=== PATIENT | female | born 1975 | race Caucasian/White ===

== ENCOUNTER 2021-10-26 19:17 | Inpatient (IN) | payer OTHER, SELFPAY ==
--- NOTE | ~2021-10-26 | XR_ITS ---
EXAMINATION: XR CHEST CLINICAL INFORMATION: NG tube placement COMPARISON: None TECHNIQUE: Portable AP upright view of the chest was obtained. 2 images. FINDINGS: NG tube terminates in the distal esophagus and could be advanced by an additional 15 cm. The lungs and pleural spaces are clear. Dilated small bowel loops are seen in the upper abdomen. XR/XR chest 1V IMPRESSION: The NG tube terminates in the distal esophagus as above. This result was discussed with Dr. Ramsay by telephone at 12:03 PM on 10/27/2021 and it was ascertained that the content and urgency of the report was understood at the time of direct communication.
--- NOTE | ~2021-10-26 | XR_ITS ---
EXAMINATION: XR CHEST CLINICAL INFORMATION: NG tube placement COMPARISON: 10/27/2021 TECHNIQUE: Frontal view of the chest was obtained. XR/XR chest 1V FINDINGS AND IMPRESSION: Lungs are well expanded and clear. Cardiomediastinal silhouette has normal size and contour. No pleural effusion. No pneumothorax. The NG tube has been advanced into the proximal stomach. No evidence of pneumoperitoneum or other significant change.
--- NOTE | ~2021-10-26 | CT_ITS ---
EXAMINATION: CT ABDOMEN AND PELVIS WITH CONTRAST CLINICAL INFORMATION: Severe abdominal pain COMPARISON: None TECHNIQUE: Multidetector volumetric images were obtained from the superior aspect of the liver through the pubic symphysis following administration 85 mL of Omnipaque 350 intravenous contrast. Sagittal and coronal reformatted images were obtained on the technologist's workstation. Oral contrast: No This CT examination was performed using dose optimization techniques as appropriate, variously including the following: *Automated exposure control *Adjustment of mA and/or kV according to patient size (this includes techniques or standardized protocols for targeted exams where dose is matched to indication/reason for exam; i.e. extremities or head) *Use of iterative reconstruction technique DLP: 487 mGy-cm FINDINGS: LUNG BASES: The visualized lung bases are unremarkable. LIVER, GALLBLADDER, AND BILIARY TREE: Normal hepatic attenuation. No liver lesions. Hepatic and portal veins are patent. Mild diffuse intrahepatic biliary ductal dilation. Gallbladder is absent. Extrahepatic bile duct measures 0.6 cm in diameter. PANCREAS: Unremarkable. SPLEEN: Unremarkable. ADRENAL GLANDS: Unremarkable. KIDNEYS AND URETERS: Symmetric nephrograms. No hydronephrosis. Subcentimeter low-density probable cyst in the midpole the right kidney, too small to accurately characterize. No other renal lesions. No perinephric stranding or collections. BLADDER: Unremarkable. GASTROINTESTINAL TRACT: Multiple fluid-filled loops of dilated small bowel throughout the abdomen with focal transition point in the right hemiabdomen just below the inferior edge of the liver on axial images 32 and 33, coronal image 26 and 27 compatible with small bowel obstruction. The more distal ileum and colon are decompressed. Normal small bowel mucosal enhancement. No bowel wall thickening. No pneumatosis or free air. Normal appendix. Trace free fluid in the mesentery and inferior margin of the liver. Small hiatal hernia. ABDOMINAL WALL: No significant hernia is appreciated. LYMPH NODES: No lymphadenopathy. VASCULAR: Unremarkable. PELVIC VISCERA: IUD appears properly positioned in the uterus. Small amount of free pelvic fluid. Fluid density unilocular right adnexal rounded cyst exerting mild mass effect on the right dome of the bladder overlying the anterior uterus. OSSEOUS STRUCTURES: No acute fracture or suspicious osseous lesion. Minimal multilevel degenerative disc disease. CT/CT abdomen pelvis w con IMPRESSION: 1. Small bowel instruction with focal transition point located in the right hemiabdomen just below the inferior to the liver (please see carbajal images). 2. Small volume free fluid/ascites. 3. 7.2 x 8.1 x 7.2 cm unilocular right adnexal cyst, benign-appearing. Recommend follow-up pelvic ultrasound in 6-12 weeks per ACR guidelines 2013 to assess functional status. 4. Status post cholecystectomy with mild intrahepatic biliary ductal dilation. No extrahepatic ductal dilation. Findings likely normal postcholecystectomy. Correlate with LFTs for clinical significance.
[2021-10-26 19:25] VITALS: BP 148/78; PULSE 88; RESP 18; TEMP 36.8; O2SAT 99; BMI 22.8
[2021-10-26 19:46] VITALS: BP 147/80; PULSE 65; RESP 16; TEMP 36.7; O2SAT 98
--- NOTE | 2021-10-26 19:48 | ED_ITS ---
HPI - Abdominal Pain General Chief Complaint: Abdominal Pain Stated Complaint: abd pain ?? excessive vomiting Time Seen by Provider: 10/26/21 19:38 Source: patient Limitations: no limitations History of Present Illness HPI narrative: This is a 45-year-old female with a history of cholecystectomy who had acute onset of severe intermittent abdominal pain this morning. Pain is constant but is worse at times, which she states causes her to scream. She has vomited several times and also moved her bowels a number of times, did not have zaina diarrhea. Denies any fever. She denies any URI symptoms or fever. She states the pain is in her midline. Pain is worse than when she had a kidney infection. Pain is better lying on her side, not worsened with cough or movement. She denies any urinary symptoms. She had felt well yesterday. The patient went to [facility] ER earlier today and waited for hours but was not seen Related Data Allergies Allergy/AdvReac Type Severity Reaction Status Date / Time amoxicillin [AMOXICILLIN] Allergy Intermediate INVOLUNTARY Unverified 01/27/20 15:56 SPASMS ciprofloxacin [CIPROFLOXACIN] Allergy Intermediate EDEMA Unverified 01/27/20 15:56 Penicillins [PENICILLINS] Allergy Unknown UNKNOWN Unverified 01/27/20 15:56 Review of Systems Review of Systems Yes all other systems are reviewed and are negative Constitutional: Reports as per HPI and Denies fever(s) Eyes: Reports as per HPI and Reports no additional eye complaints Reports system reviewed and no additional complaints, except as documented, Reports as per HPI, Denies nasal congestion, Denies nasal discharge and Denies sore throat Cardiovascular: Reports as per HPI, Denies chest pain and Denies dyspnea Respiratory: Reports as per HPI, Denies cough and Denies dyspnea Gastrointestinal: Reports as per HPI, Reports abdominal pain, Denies constipation, Denies diarrhea and Reports vomiting Genitourinary: Reports as per HPI, Denies hematuria, Denies urinary frequency and Denies dysuria Musculoskeletal: Reports no additional musculoskeletal complaints and Denies numbness Skin/Breast: Reports as per HPI and Denies rash Reports as per HPI, Denies focal weakness and Denies numbness Psychiatric: Reports no additional psychiatric complaints and Reports as per HPI Endocrine: Reports no additional endocrine complaints and Reports as per HPI Hematologic/Lymphatic: Reports no additional hematologic/lymphatic complaints, Reports as per HPI and Reports other (No peripheral edema) [facility] Social History Social History Advance Directives: No Advance Directives Information Provided: No Physical Exam ED Vital Signs: Vital Signs - 24 hr 10/26/21 19:25 10/26/21 19:46 10/26/21 21:55 Temperature 98.2 F 98.1 F 99.0 F Pulse Rate 88 65 80 Respiratory Rate 18 16 16 Blood Pressure 148/78 H 147/80 H 154/81 H Pulse Oximetry 99 98 98 Oxygen Delivery Method Room Air Room Air Room Air BMI result Body Mass Index 22.8 Const Other: Patient uncomfortable appearing, lying on her side, intermittently screaming out loudly and pain. Skin appears somewhat pale General: no acute distress Orientation/consciousness: patient oriented x3 HENMT Head: Yes normal to inspection General nose exam: Normal external nose present Mouth: moist mucous membranes Throat: Yes posterior oropharynx normal, Yes tonsils normal and Yes uvula midline Eyes Eyelids: Yes eyelids normal Conjunctivae: conjunctivae normal Pupils: Equal, round and reactive pupils present Neck Neck: Yes supple Resp Effort & Inspection: normal respiratory effort Auscultation: clear to auscultation bilaterally Cardio Rate: regular rate Rhythm: regular rhythm Heart sounds: S1 normal heart sound present, S2 normal heart sound present, no gallops, no murmurs and no rubs GI Inspection: No distended Palpation (GI): Soft to palpation and Tenderness to palpation present (GI) (Worst right lower quadrant) in the RLQ and at McBurney's point Auscultation: normal bowel sounds and Absent bowel sounds Skin General skin exam: other (Warm and dry) Neuro General: patient oriented x3 and CN's II-XI intact bilaterally Cranial nerves: Yes Equal, round and reactive pupils present Extrem General: Yes no pedal edema Psych Affect: normal affect Attitude: cooperative MDM - Abdominal Pain MDM Narrative Medical decision making narrative: Patient with acute onset of severe abdominal pain today, constant but more intense at times, causing the patient to scream rather loudly in the ED. Patient did have associated vomiting times several times and also had moved her bowels a lot this morning. Patient was not distended on exam, bowel sounds are not hyperactive. Patient was treated with Dilaudid, Zofran, normal saline IV, and later Ativan, which she takes at bedtime. Patient had no further vomiting in the ED. white blood cell count is 15 but BUN to creatinine ratio, anion gap are normal. CT scan did show dilated loops of small bowel filled with fluid with a transition point on right below the liver, as well as a right-sided large adnexal cyst. Case was discussed with Dr. Mendoza of general surgery, who will consult. Dr. Santos the hospitalist service has been consulted for admission. Lab Data Attestation: I reviewed the patient's lab results. Result diagrams: 10/26/21 20:20 10/26/21 20:20 Labs: Lab Results 10/26/21 10/26/21 10/26/21 Range/Units 20:20 20:20 20:20 WBC 15.2 H (4.8-10.8) X10*3/uL RBC 4.53 (4.20-5.50) X10*6/uL Hgb 14.1 (12.0-16.0) g/dl Hct 40.7 (37.0-47.0) % MCV 89.8 (80.0-98.0) fL MCH 31.1 (27.0-33.0) pg MCHC 34.6 (31.0-35.0) g/dl RDW 12.4 (11.0-16.0) % Plt Count 349 (160-400) X10*3/uL MPV 10.4 (9.4-12.3) fL Immature Gran % (Auto) 0.3 (0.0-0.4) % Neut % (Auto) 93.5 H (45-73) % Lymph % (Auto) 4.5 L (20-40) % [place] % (Auto) 1.5 L (2-11) % Eos % (Auto) 0.0 (0-4) % Baso % (Auto) 0.2 (0-2) % Lymph # (Auto) 0.7 L (1.2-4.9) X10*3/uL [place] # (Auto) 0.2 (0.1-1.2) X10*3/uL Eos # (Auto) 0.0 (0.0-0.4) X10*3/uL Baso # (Auto) 0.0 (0.0-0.2) X10*3/uL Abs Immat Gran (auto) 0.05 H (0.00-0.03) X10*3/uL Absolute Neuts (auto) 14.2 H (2.0-8.3) x10*3/uL Absolute Nucleated RBC 0.000 (0.0-0.012) X10*3/uL Nucleated RBC % (auto) 0.0 (0.0-0.2) /100WBC Smear Tech's Comments VERIFIED Sodium 137 (135-145) mmol/L Potassium 3.9 (3.3-5.1) mmol/L Chloride 105 (96-108) mmol/L Carbon Dioxide 16 L (22-29) mmol/L Anion Gap 20 (12-20) BUN 14 (9-16) mg/dL Creatinine 0.78 (0.5-1.4) mg/dL Estim Creat Clear Calc 90.9 Estimated GFR > 60 Random Glucose 132 H (60-115) mg/dL Calcium 9.7 (8.4-10.2) mg/dL Total Bilirubin 1.2 H (0.0-1.0) mg/dL AST 16 (5-31) U/L ALT 16 (0-31) U/L Alkaline Phosphatase 57 (39-117) U/L Total Protein 7.8 (6.5-8.0) g/dL Albumin 5.0 (3.5-5.0) g/dL Lipase 23 (8-78) U/L Beta HCG, Quant < 2 mIU/mL Imaging Data CT abdomen and pelvis with IV contrast: Radiologist's impression: FINDINGS: LUNG BASES: The visualized lung bases are unremarkable.? LIVER, GALLBLADDER, AND BILIARY TREE: Normal hepatic attenuation. No liver lesions. Hepatic and portal veins are patent. Mild diffuse intrahepatic biliary ductal dilation. Gallbladder is absent. Extrahepatic bile duct measures 0.6 cm in diameter.? PANCREAS: Unremarkable.? SPLEEN: Unremarkable.? ADRENAL GLANDS: Unremarkable.? KIDNEYS AND URETERS: Symmetric nephrograms. No hydronephrosis. Subcentimeter low-density probable cyst in the midpole the right kidney, too small to accurately characterize. No other renal lesions. No perinephric stranding or collections.? BLADDER: Unremarkable.? GASTROINTESTINAL TRACT: Multiple fluid-filled loops of dilated small bowel throughout the abdomen with focal transition point in the right hemiabdomen just below the inferior edge of the liver on axial images 32 and 33, coronal image 26 and 27 compatible with small bowel obstruction. The more distal ileum and colon are decompressed. Normal small bowel mucosal enhancement. No bowel wall thickening. No pneumatosis or free air. Normal appendix. Trace free fluid in the mesentery and inferior margin of the liver. Small hiatal hernia. ABDOMINAL WALL: No significant hernia is appreciated.? LYMPH NODES: No lymphadenopathy. VASCULAR: Unremarkable. PELVIC VISCERA: IUD appears properly positioned in the uterus. Small amount of free pelvic fluid. Fluid density unilocular right adnexal rounded cyst exerting mild mass effect on the right dome of the bladder overlying the anterior uterus.? OSSEOUS STRUCTURES: No acute fracture or suspicious osseous lesion. Minimal multilevel degenerative disc disease.? CT/CT abdomen pelvis w con IMPRESSION: ? 1. Small bowel obstruction with focal transition point located in the right hemiabdomen just below the inferior to the liver (please see carbajal images). 2. Small volume free fluid/ascites. 3. 7.2 x 8.1 x 7.2 cm unilocular right adnexal cyst, benign-appearing. Recommend follow-up pelvic ultrasound in 6-12 weeks per ACR guidelines 2013 to assess functional status. 4. Status post cholecystectomy with mild intrahepatic biliary ductal dilation. No extrahepatic ductal dilation. Findings likely normal postcholecystectomy. Correlate with LFTs for clinical significance. Discharge Plan Discharge Clinical Impression: Small bowel obstruction Patient Disposition: Admitted as Observation
[2021-10-26] MEDS: HYDROmorphone HCl 1 MG/ML SYRINGE IVPUSH (20:14)
[2021-10-26] MEDS: ondansetron HCL 4 MG/2 ML VIAL IVPUSH (20:14)
[2021-10-26] MEDS: 0.9 % Sodium Chloride 1,000 ML 999 ML IV (20:15)
[2021-10-26 20:28] LABS: Basophils Percent Auto 0.2 % (0-2); Hematocrit 40.7 % (37.0-47.0); Hemoglobin 14.1 g/dl (12.0-16.0); Imm Gran Abs Auto 0.05 X10*3/uL (0.00-0.03); Imm Gran Pct Auto 0.3 % (0.0-0.4); Lymphocytes Absolute Auto 0.7 X10*3/uL (1.2-4.9); Lymphocytes Percent Auto 4.5 % (20-40); MANUAL DIFF FLAG SCAN; Mean Corpuscular HGB Conc 34.6 g/dl (31.0-35.0); Mean Corpuscular Hemoglobin 31.1 pg (27.0-33.0); Mean Corpuscular Volume 89.8 fL (80.0-98.0); Mean Platelet Volume 10.4 fL (9.4-12.3); Monocytes Absolute Auto 0.2 X10*3/uL (0.1-1.2); Monocytes Percent Auto 1.5 % (2-11); Neutrophils Absolute Auto 14.2 x10*3/uL (2.0-8.3); Neutrophils Percent Auto 93.5 % (45-73); Platelet Count 349 X10*3/uL (160-400); Red Blood Count 4.53 X10*6/uL (4.20-5.50); Red Cell Distribution Width 12.4 % (11.0-16.0); SCAN SMEAR FLAG 1; White Blood Count 15.2 X10*3/uL (4.8-10.8)
[2021-10-26 20:49] LABS: SLIDE REVIEW VERIFIED
[2021-10-26 21:01] LABS: Lipase 23 U/L (8-78)
[2021-10-26 21:02] LABS: Alanine Aminotransferase 16 U/L (0-31); Alkaline Phosphatase 57 U/L (39-117); Anion Gap 20 (12-20); Aspartate Amino Transferase 16 U/L (5-31); Bilirubin Total 1.2 mg/dL (0.0-1.0); Blood Urea Nitrogen 14 mg/dL (9-16); Calcium 9.7 mg/dL (8.4-10.2); Carbon Dioxide 16 mmol/L (22-29); Chloride 105 mmol/L (96-108); Creatinine Clr Calc Pharmacy 90.9; Estimated Glomerular Filt Rate > 60; Glucose Random 132 mg/dL (60-115); Potassium 3.9 mmol/L (3.3-5.1); Sodium 137 mmol/L (135-145); Total Protein 7.8 g/dL (6.5-8.0)
[2021-10-26 21:08] LABS: HCG Quantitative < 2 mIU/mL
[2021-10-26] MEDS: iohexoL 350 MG/ML 100 ML INFUS..BTL IV (21:37)
[2021-10-26 21:55] VITALS: BP 154/81; PULSE 80; RESP 16; TEMP 37.2; O2SAT 98
[2021-10-26] MEDS: LORazepam 2 MG/ML VIAL 1 MG IVPUSH (22:18)
--- NOTE | 2021-10-26 23:31 | P.HPHOSP_ITS ---
History of Present Illness Date of Service: 10/26/21 Chief Complaint: Abd pain Year old female past medical history of PCOS and anxiety who presents to the hospital with complaints of abdominal pain. Patient reports that the abdominal pain started today, worsened over the course of the day, pain is in the center of her abdomen, 10/10, nonradiating, no exacerbating or relieving factors, her last BM was the day prior, she reports that she has some gas. She has nausea with no vomiting, no urinary symptoms and no lower extremity edema. No headache or change in vision. on arrival to the ED patient hemodynamically stable with no significant abnormal vitals Labs are significant for WBC count of 15.2, otherwise unremarkable. Abdominal pelvic CT showed small bowel obstruction with focal transition point located in the right xiang abdomen just below/ inferior to the liver 7.2 x 8.1 x 7.2 cm right adnexal cyst, benign appearing, recommended follow-up in 6-12 weeks with a pelvic ultrasound, patient will be admitted for further management Review of Systems Review of Systems: Yes all other systems are reviewed and are negative [facility] Medical History PCOS (polycystic ovarian syndrome) Family History (Updated 10/27/21 @ 05:32 by Caitlin Santos MD) Other No family history of coronary artery disease Surgical History No pertinent past surgical history Social History Household Members: Spouse and Children Housing: House Do you presently have visiting nurse or other home services: No Patient Tobacco Use Status: Never used Tobacco e-Cigarette/Vaping Use: Never Used Second Hand Smoke Exposure: No Use of substances other than those prescribed or required for medical reasons: No Any prior treatment program specific to substance use: No Have you been hit, kicked, punched, or otherwise hurt by someone within the past year? If so, by whom?: No Do you feel safe in your current relationship?: Yes Is there a partner from a previous relationship who is making you feel unsafe no w?: No Are you made to feel afraid or neglected: No Advance Directives: No Advance Directives Information Provided: No Do you have thoughts of harming others: None Do you have a plan to hurt others: No Plan Recently lost weight without trying: No Eating poorly because of decreased appetite: No Nutrition Risks: No Nutritional Risk Patient : No : No Poor oral hygiene: No Meds Allergies Allergy/AdvReac Type Severity Reaction Status Date / Time amoxicillin [AMOXICILLIN] Allergy Intermediate INVOLUNTARY Unverified 01/27/20 15:56 SPASMS ciprofloxacin [CIPROFLOXACIN] Allergy Intermediate EDEMA Unverified 01/27/20 15:56 Penicillins [PENICILLINS] Allergy Unknown UNKNOWN Unverified 01/27/20 15:56 Active Medications: Current Medications Pharmacy Consult (Consult Rx Perform Med Rec) 1 each MISCELLANE ONCE PRN PRN Reason: Consult order Home Medications Medication Instructions Recorded Confirmed Last Taken Type albuterol sulfate 90 mcg/actuation inh inhalation 10/27/21 Unknown History aerosol inhaler fluoxetine 20 mg capsule 2 cap PO QAM 10/27/21 10/27/21 Unknown History levothyroxine 50 mcg tablet 1 tab PO DAILY 10/27/21 10/27/21 Unknown History lorazepam 0.5 mg tablet 1 tab PO DAILY PRN Anxiety 10/27/21 10/27/21 Unknown History metformin 500 mg tablet 1 tab PO DAILY 10/27/21 10/27/21 Unknown History trazodone 50 mg tablet 1 - 3 tab PO BEDTIME PRN Insomnia 10/27/21 10/27/21 Unknown History Physical Exam Vital Signs and Narrative: Vital Signs: Last Vital Signs Temp 99.0 F 10/26/21 21:55 Pulse 80 10/26/21 21:55 Resp 16 10/26/21 21:55 BP 154/81 H 10/26/21 21:55 Pulse Ox 98 10/26/21 21:55 O2 Del Method 10/26/21 21:55 BMI result Body Mass Index 22.8 Const: General: cooperative and no acute distress Orientation/consciousness: patient oriented x3 Eyes: General: appearance normal, both eyes and all related structures Pupils: Equal, round and reactive pupils present Resp: Effort & Inspection: normal respiratory effort Auscultation: clear to auscultation bilaterally Cardio: Rate: regular rate Rhythm: regular rhythm GI: Other: abdomen is soft, hyperactive bowel sounds, guarding Palpation (GI): Soft to palpation Auscultation: normal bowel sounds Skin: General skin exam: no rashes or lesions noted Neuro: General: patient oriented x3 Cranial nerves: Yes Equal, round and reactive pupils present Cognition (Neuro): normal cognition Extrem: General: Yes normal to inspection and Yes no pedal edema Results Labs CBC and Chem 7: 10/26/21 20:20 10/26/21 20:20 Labs: Laboratory Results - last 24 hr 10/26/21 10/26/21 10/26/21 20:20 20:20 20:20 MCV 89.8 MCH 31.1 MCHC 34.6 RDW 12.4 Plt Count 349 MPV 10.4 Immature Gran % (Auto) 0.3 Neut % (Auto) 93.5 H Lymph % (Auto) 4.5 L [place] % (Auto) 1.5 L Eos % (Auto) 0.0 Baso % (Auto) 0.2 Lymph # (Auto) 0.7 L [place] # (Auto) 0.2 Eos # (Auto) 0.0 Baso # (Auto) 0.0 Abs Immat Gran (auto) 0.05 H Absolute Neuts (auto) 14.2 H Absolute Nucleated RBC 0.000 Nucleated RBC % (auto) 0.0 Smear Tech's Comments VERIFIED Anion Gap 20 Estim Creat Clear Calc 90.9 Estimated GFR > 60 Random Glucose 132 H Calcium 9.7 Total Bilirubin 1.2 H AST 16 ALT 16 Alkaline Phosphatase 57 Total Protein 7.8 Albumin 5.0 Lipase 23 Beta HCG, Quant < 2 Imaging Radiologist's Impressions: Impressions Abdomen/Pelvis CT 10/26/21 21:39 IMPRESSION: 1. Small bowel instruction with focal transition point located in the right hemiabdomen just below the inferior to the liver (please see carbajal images). 2. Small volume free fluid/ascites. 3. 7.2 x 8.1 x 7.2 cm unilocular right adnexal cyst, benign-appearing. Recommend follow-up pelvic ultrasound in 6-12 weeks per ACR guidelines 2013 to assess functional status. 4. Status post cholecystectomy with mild intrahepatic biliary ductal dilation. No extrahepatic ductal dilation. Findings likely normal postcholecystectomy. Correlate with LFTs for clinical significance. Assessment and Plan (1) Small bowel obstruction: Status: Acute Plan this is a 45-year-old female with past medical history of PCOS who presents to the hospital with abdominal pain found to have small-bowel obstruction # small-bowel obstruction - keep NPO - pain management - currently no nausea or vomiting - bowel rest - general surgery consult at # PCOS - hold metformin - can resume once patient able to eat # anxiety - continue home medications DVT prophylaxis: Lovenox given the small-bowel obstruction patient will require a minimum 2 night hospital stay to monitor resolution of the obstruction Quality Stroke Does the patient have a stroke diagnosis?: No VTE Prior VTE?: No VTE Risk Level:: Surgical - very high VTE Device Contraindication: Treatment Not Indicated VTE Drug Contraindication: N/A - Med Ordered
[2021-10-26 23:50] VITALS: BP 148/80; PULSE 95; RESP 16; TEMP 37.2; O2SAT 98
[2021-10-27] VITALS (15 sets, daily range): BP systolic 123–165; BP diastolic 64–95; PULSE 82–91; RESP 15–20; TEMP 36.3–37.7; O2SAT 97–100; BMI 22.0
[2021-10-27 00:26] LABS: COVID-19 Test Negative (Negative)
[2021-10-27] MEDS: Enoxaparin Sodium 40 MG/0.4 ML SYRINGE SUBCUT ×2 (01:10→23:44)
[2021-10-27] MEDS: Lactated Ringers 1,000 ML 100 ML IVCONT ×3 (01:10→20:09)
[2021-10-27] MEDS: HYDROmorphone HCl 1 MG/ML SYRINGE 0.5 MG IVPUSH ×6 (02:08→20:13)
[2021-10-27] MEDS: traZODone HCL 50 MG TABLET 150 MG PO (02:10)
[2021-10-27] MEDS: Levothyroxine Sodium 50 MCG TABLET PO (06:06)
[2021-10-27 06:42] LABS: MANUAL DIFF FLAG NO
[2021-10-27 06:47] LABS: Basophils Percent Auto 0.2 % (0-2); Eosinophils Percent Auto 0.1 % (0-4); Hematocrit 35.3 % (37.0-47.0); Hemoglobin 11.7 g/dl (12.0-16.0); Imm Gran Abs Auto 0.05 X10*3/uL (0.00-0.03); Imm Gran Pct Auto 0.3 % (0.0-0.4); Lymphocytes Absolute Auto 1.4 X10*3/uL (1.2-4.9); Lymphocytes Percent Auto 9.5 % (20-40); Mean Corpuscular HGB Conc 33.1 g/dl (31.0-35.0); Mean Corpuscular Hemoglobin 30.6 pg (27.0-33.0); Mean Corpuscular Volume 92.4 fL (80.0-98.0); Mean Platelet Volume 10.9 fL (9.4-12.3); Monocytes Absolute Auto 0.9 X10*3/uL (0.1-1.2); Monocytes Percent Auto 6.4 % (2-11); Neutrophils Absolute Auto 12.4 x10*3/uL (2.0-8.3); Neutrophils Percent Auto 83.5 % (45-73); Platelet Count 297 X10*3/uL (160-400); Red Blood Count 3.82 X10*6/uL (4.20-5.50); Red Cell Distribution Width 12.6 % (11.0-16.0); White Blood Count 14.8 X10*3/uL (4.8-10.8)
--- NOTE | 2021-10-27 07:17 | PHA.MEDREC ---
Pharmacy Consult ? Medication Reconciliation Pharmacy has completed the medication reconciliation.nursing completed med, reviewed by pharmacy
[2021-10-27 07:19] LABS: Anion Gap 11 (12-20); Blood Urea Nitrogen 10 mg/dL (9-16); Calcium 8.5 mg/dL (8.4-10.2); Carbon Dioxide 23 mmol/L (22-29); Chloride 108 mmol/L (96-108); Creatinine Clr Calc Pharmacy 102.8; Estimated Glomerular Filt Rate > 60; Glucose Random 93 mg/dL (60-115); Potassium 3.9 mmol/L (3.3-5.1); Sodium 138 mmol/L (135-145)
--- NOTE | 2021-10-27 09:20 | HO.PM.IMPN ---
Subjective Subjective Date of Service: 10/27/21 Interval History: feeling better this morning, does abdominal pain after Dilaudid wears off, no nausea, no vomiting, no flatus, no bowel movement. Review of Systems general no fevers, no chills respiratory no cough, no shortness of breath CVS no chest pain no urinary urgency, no dysuria Review of Systems: Yes all other systems are reviewed and are negative Physical Exam Vital Signs: Vital Signs: Last Vital Signs Temp 99.2 F 10/27/21 07:44 Pulse 82 10/27/21 07:44 Resp 16 10/27/21 07:44 BP 138/73 10/27/21 07:44 Pulse Ox 97 10/27/21 07:44 O2 Del Method 10/27/21 07:44 BMI result Body Mass Index 22.0 Const: Other: General awake alert x3,in no acute distress. Neck no JVD. CVS regular rate rhythm, Respiratory lungs clear to auscultation, no respiratory distress, no wheeze, no rhonchi. Gastrointestinal abdomen soft, nontender, bowel sounds audible, no guarding , no rigidity. Extremities no edema. Neuro nonfocal Skin no rash psych appropriate affect Objective Data Active Medications Acetaminophen (Acetaminophen Supp 650 Mg Supp.Rect) 650 mg CA Q6H PRN PRN Reason: Pain, Mild (Pain Scale 1-3) Albuterol Sulfate (Albuterol Sulfate 90 Mcg 8 Gm Inhaler) 2 puff INHALE TID PRN PRN Reason: Shortness Of Breath Budesonide (Budesonide 180 Mcg Aer.Pow.Ba) 2 puff INHALE BID [facility] Enoxaparin Sodium (Enoxaparin Sodium 40 Mg/0.4 Ml Syringe) 40 mg SUBCUT Q24H [facility] Last Admin: 10/27/21 01:10 Dose: 40 mg Documented By: CANDE Fluoxetine HCl (Fluoxetine Hcl 20 Mg Capsule) 40 mg PO DAILY [facility] Hydromorphone HCl (Hydromorphone Hcl 1 Mg/Ml Syringe) 0.5 mg IVPUSH Q4H PRN; Protocol PRN Reason: Pain, Severe (Pain Scale 7-10) Last Admin: 10/27/21 06:40 Dose: 0.5 mg Documented By: CANDE Lactated Ringer's (Lr) 1,000 mls @ 100 mls/hr IVCONT .Q10H [facility] Last Admin: 10/27/21 01:10 Dose: 100 mls/hr Documented By: CANDE Levothyroxine Sodium (Levothyroxine Sodium 50 Mcg Tablet) 50 mcg PO DAILY@0630 [facility] Last Admin: 10/27/21 06:06 Dose: 50 mcg Documented By: CANDE Lorazepam (Lorazepam 0.5 Mg Tablet) 0.5 mg PO DAILY PRN PRN Reason: Anxiety Ondansetron HCl (Ondansetron Hcl 4 Mg/2 Ml Vial) 4 mg IVPUSH Q8H PRN PRN Reason: Nausea and Vomiting Pharmacy Consult (Consult Rx Perform Med Rec) 1 each MISCELLANE ONCE PRN PRN Reason: Consult order Trazodone HCl (Trazodone Hcl 50 Mg Tablet) 50 - 150 mg PO BEDTIME PRN PRN Reason: Insomnia Labs CBC & Chem 7: 10/27/21 05:59 10/27/21 05:59 Labs: Laboratory Results - last 24 hr 10/26/21 10/26/21 10/26/21 20:20 20:20 20:20 MCV 89.8 MCH 31.1 MCHC 34.6 RDW 12.4 Plt Count 349 MPV 10.4 Immature Gran % (Auto) 0.3 Neut % (Auto) 93.5 H Lymph % (Auto) 4.5 L [place] % (Auto) 1.5 L Eos % (Auto) 0.0 Baso % (Auto) 0.2 Lymph # (Auto) 0.7 L [place] # (Auto) 0.2 Eos # (Auto) 0.0 Baso # (Auto) 0.0 Abs Immat Gran (auto) 0.05 H Absolute Neuts (auto) 14.2 H Absolute Nucleated RBC 0.000 Nucleated RBC % (auto) 0.0 Smear Tech's Comments VERIFIED Anion Gap 20 Estim Creat Clear Calc 90.9 Estimated GFR > 60 Random Glucose 132 H Calcium 9.7 Total Bilirubin 1.2 H AST 16 ALT 16 Alkaline Phosphatase 57 Total Protein 7.8 Albumin 5.0 Lipase 23 Beta HCG, Quant < 2 COVID-19 (ORTIZ) COVID-19 Clin Com 10/26/21 10/27/21 10/27/21 23:54 05:59 05:59 MCV 92.4 MCH 30.6 MCHC 33.1 RDW 12.6 Plt Count 297 MPV 10.9 Immature Gran % (Auto) 0.3 Neut % (Auto) 83.5 H Lymph % (Auto) 9.5 L [place] % (Auto) 6.4 Eos % (Auto) 0.1 Baso % (Auto) 0.2 Lymph # (Auto) 1.4 [place] # (Auto) 0.9 Eos # (Auto) 0.0 Baso # (Auto) 0.0 Abs Immat Gran (auto) 0.05 H Absolute Neuts (auto) 12.4 H Absolute Nucleated RBC 0.000 Nucleated RBC % (auto) 0.0 Smear Tech's Comments Anion Gap 11 L Estim Creat Clear Calc 102.8 Estimated GFR > 60 Random Glucose 93 Calcium 8.5 D Total Bilirubin AST ALT Alkaline Phosphatase Total Protein Albumin Lipase Beta HCG, Quant COVID-19 (ORTIZ) Negative COVID-19 Clin Com See Note Assessment and Plan (1) Small bowel obstruction: Status: Acute Plan 45-year-old female with past medical history of PCOS who presents to the hospital with abdominal pain found to have small-bowel obstruction #? abdominal pain CT scan showed small-bowel obstruction with transition point -? continue NPO/ IV fluids, IV analgesics await surgery input, prior history of cholecystectomy question adhesions normal electrolytes # leukocytosis likely due to small-bowel obstruction, lung bases clear on CT abdomen will obtain UA #? PCOS -? hold metformin,? can resume once patient able to eat # right adnexal cyst, 7.2 x 8.1 x 7.2 cm unilocular? recommend repeat pelvic ultrasound in 6-12 weeks and follow-up with OBGYN #? anxiety -? continue home medications # hypothyroidism continue Synthroid, check TSH ?DVT prophylaxis:? Lovenox will need continued inpatient hospitalization?given small-bowel obstruction on IV fluids and NPO. Quality Stroke Does the patient have a stroke diagnosis?: No VTE Prior VTE?: No VTE Risk Level:: Surgical - very high VTE Device Contraindication: Treatment Not Indicated VTE Drug Contraindication: N/A - Med Ordered
[2021-10-27] MEDS: FLUoxetine HCl 20 MG CAPSULE 40 MG PO (09:32)
--- NOTE | 2021-10-27 11:16 | P.CONGS_ITS ---
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 I was contacted by the emergency room team last night because the patient had crampy abdominal pain and vomiting. It was reported the patient had cholecystectomy, presumably from laparoscopic surgery, however the patient notes today that she had a history of liver tumors and underwent an open resection of these liver tumors that turned out to be benign. Since that time, she was doing well until yesterday when she developed crampy abdominal pain associated with nausea and vomiting. She also had several normal bowel movements and then some loose stool but is not passed any gas since admission yesterday. She reports cyclical crampy abdominal pain associated with nausea and is awaiting pain medication when I examined her earlier today. She did not have a nasogastric tube placed notes recent emesis associated with her nausea. She denies prior history of small-bowel obstruction and no one at home has any gastrointestinal illness. She denies any recent trauma. 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 PMFSH Past Medical History Medical History PCOS (polycystic ovarian syndrome) Functional capacity: independent ambulation Family History Family History Other No family history of coronary artery disease Pertinent family history: She reports an unknown family history in her father regarding cardiac issues Surgical History Surgical History No pertinent past surgical history Social History Social History Household Members: Spouse and Children Housing: House Do you presently have visiting nurse or other home services: No Patient Tobacco Use Status: Never used Tobacco e-Cigarette/Vaping Use: Never Used Second Hand Smoke Exposure: No Use of substances other than those prescribed or required for medical reasons: No Any prior treatment program specific to substance use: No Have you been hit, kicked, punched, or otherwise hurt by someone within the past year? If so, by whom?: No Do you feel safe in your current relationship?: Yes Is there a partner from a previous relationship who is making you feel unsafe now?: No Are you made to feel afraid or neglected: No Advance Directives: No Advance Directives Information Provided: No Do you have thoughts of harming others: None Do you have a plan to hurt others: No Plan Recently lost weight without trying: No Eating poorly because of decreased appetite: No Nutrition Risks: No Nutritional Risk Patient : No : No Poor oral hygiene: No Meds Allergies Allergy/AdvReac Type Severity Reaction Status Date / Time amoxicillin [AMOXICILLIN] Allergy Intermediate INVOLUNTARY Unverified 01/27/20 15:56 SPASMS ciprofloxacin [CIPROFLOXACIN] Allergy Intermediate EDEMA Unverified 01/27/20 15:56 Penicillins [PENICILLINS] Allergy Unknown UNKNOWN Unverified 01/27/20 15:56 Active Medications: Current Medications Acetaminophen (Acetaminophen Supp 650 Mg Supp.Rect) 650 mg [place] Q6H PRN PRN Reason: Pain, Mild (Pain Scale 1-3) Albuterol Sulfate (Albuterol Sulfate 90 Mcg 8 Gm Inhaler) 2 puff INHALE TID PRN PRN Reason: Shortness Of Breath Budesonide (Budesonide 180 Mcg Aer.Pow.Ba) 2 puff INHALE RBID [facility] Enoxaparin Sodium (Enoxaparin Sodium 40 Mg/0.4 Ml Syringe) 40 mg SUBCUT Q24H [facility] Last Admin: 10/27/21 01:10 Dose: 40 mg Fluoxetine HCl (Fluoxetine Hcl 20 Mg Capsule) 40 mg PO DAILY [facility] Last Admin: 10/27/21 09:32 Dose: 40 mg Hydromorphone HCl (Hydromorphone Hcl 1 Mg/Ml Syringe) 0.5 mg IVPUSH Q4H PRN; Protocol PRN Reason: Pain, Severe (Pain Scale 7-10) Last Admin: 10/27/21 10:51 Dose: 0.5 mg Lactated Ringer's (Lr) 1,000 mls @ 100 mls/hr IVCONT .Q10H [facility] Last Admin: 10/27/21 01:10 Dose: 100 mls/hr Levothyroxine Sodium (Levothyroxine Sodium 50 Mcg Tablet) 50 mcg PO DAILY@0630 [facility] Last Admin: 10/27/21 06:06 Dose: 50 mcg Lorazepam (Lorazepam 0.5 Mg Tablet) 0.5 mg PO DAILY PRN PRN Reason: Anxiety Ondansetron HCl (Ondansetron Hcl 4 Mg/2 Ml Vial) 4 mg IVPUSH Q8H PRN PRN Reason: Nausea and Vomiting Pharmacy Consult (Consult Rx Perform Med Rec) 1 each MISCELLANE ONCE PRN PRN Reason: Consult order Trazodone HCl (Trazodone Hcl 50 Mg Tablet) 50 - 150 mg PO BEDTIME PRN PRN Reason: Insomnia Home Medications Medication Instructions Recorded Confirmed Last Taken Type albuterol sulfate 90 mcg/actuation 2 puff inhalation TID PRN 10/27/21 10/27/21 Unknown History aerosol inhaler Shortness Of Breath budesonide 180 mcg/actuation 2 puff inhalation BID 10/27/21 10/27/21 Unknown History breath activated powder inhaler (Pulmicort Flexhaler) fluoxetine 20 mg capsule 2 cap PO QAM 10/27/21 10/27/21 Unknown History levothyroxine 50 mcg tablet 1 tab PO DAILY 10/27/21 10/27/21 Unknown History lorazepam 0.5 mg tablet 1 tab PO DAILY PRN Anxiety 10/27/21 10/27/21 Unknown History metformin 500 mg tablet 1 tab PO DAILY 10/27/21 10/27/21 Unknown History trazodone 50 mg tablet 1 - 3 tab PO BEDTIME PRN Insomnia 10/27/21 10/27/21 Unknown History Physical Exam Vital Signs: Vital Signs: Last Vital Signs Temp 99.2 F 10/27/21 07:44 Pulse 82 10/27/21 07:44 Resp 16 10/27/21 07:44 BP 138/73 10/27/21 07:44 Pulse Ox 97 10/27/21 07:44 O2 Del Method 10/27/21 07:44 BMI result Body Mass Index 22.0 On exam, she appears tired and queasy and is laying on her right side holding an emesis bag that is empty. NC/AT, PERRLA, EOMI Oropharynx is clear with no aphthous ulcers Mallampati class 2 Heart is regular, normal S1-S2 no rubs or murmurs Lungs are clear and equal anteriorly Abdomen has a large, chevron incision extending from the right to left subcostal area with no palpable hernias. Her abdomen is soft with no peritoneal sign to percussion. There is vague discomfort on deep palpation but no palpable hernia. Hyperactive bowel sounds are noted. No inguinal hernias or umbilical hernias are noted Rectal and pelvic are deferred Skin is good turgor and is free of rashes Extremities are free of cyanosis clubbing edema Mood, affect and judgment all appear intact based on our conversation and the patient's situation Results Labs Result diagrams: 10/27/21 05:59 10/27/21 05:59 Labs: Abnormal lab results 10/26/21 10/26/21 10/27/21 Range/Units 20:20 20:20 05:59 WBC 15.2 H 14.8 H (4.8-10.8) X10*3/uL RBC 3.82 L (4.20-5.50) X10*6/uL Hgb 11.7 L (12.0-16.0) g/dl Hct 35.3 L (37.0-47.0) % Neut % (Auto) 93.5 H 83.5 H (45-73) % Lymph % (Auto) 4.5 L 9.5 L (20-40) % [place] % (Auto) 1.5 L (2-11) % Lymph # (Auto) 0.7 L (1.2-4.9) X10*3/uL Abs Immat Gran (auto) 0.05 H 0.05 H (0.00-0.03) X10*3/uL Absolute Neuts (auto) 14.2 H 12.4 H (2.0-8.3) x10*3/uL Carbon Dioxide 16 L (22-29) mmol/L Anion Gap (12-20) Random Glucose 132 H (60-115) mg/dL Total Bilirubin 1.2 H (0.0-1.0) mg/dL 10/27/21 Range/Units 05:59 WBC (4.8-10.8) X10*3/uL RBC (4.20-5.50) X10*6/uL Hgb (12.0-16.0) g/dl Hct (37.0-47.0) % Neut % (Auto) (45-73) % Lymph % (Auto) (20-40) % [place] % (Auto) (2-11) % Lymph # (Auto) (1.2-4.9) X10*3/uL Abs Immat Gran (auto) (0.00-0.03) X10*3/uL Absolute Neuts (auto) (2.0-8.3) x10*3/uL Carbon Dioxide (22-29) mmol/L Anion Gap 11 L (12-20) Random Glucose (60-115) mg/dL Total Bilirubin (0.0-1.0) mg/dL Short CBC 10/26/21 10/27/21 Range/Units 20:20 05:59 WBC 15.2 H 14.8 H (4.8-10.8) X10*3/uL Hgb 14.1 11.7 L (12.0-16.0) g/dl Hct 40.7 35.3 L (37.0-47.0) % Plt Count 349 297 (160-400) X10*3/uL BMP 10/26/21 10/27/21 20:20 05:59 Sodium 137 138 Potassium 3.9 3.9 Chloride 105 108 Carbon Dioxide 16 L 23 BUN 14 10 Creatinine 0.78 0.69 Calcium 9.7 8.5 D Liver Function 10/26/21 Range/Units 20:20 Total Bilirubin 1.2 H (0.0-1.0) mg/dL AST 16 (5-31) U/L ALT 16 (0-31) U/L Alkaline Phosphatase 57 (39-117) U/L Albumin 5.0 (3.5-5.0) g/dL All other labs normal. Imaging Abdomen CT scan report/results: report reviewed and image reviewed CT scan - pelvis: report reviewed and image reviewed Assessment and Plan (1) Asthma: Status: Acute (2) Small bowel obstruction: Status: Acute (3) PCOS (polycystic ovarian syndrome): Status: Acute Plan I have placed orders and spoke with the nursing staff regarding placement of a nasogastric tube. I will order a lactic acid level given the degree of patient discomfort. Will reassess the patient following NG placement to see if there is interval improvement in her symptoms. Continue IV hydration and trend labs. Please call me with any surgical questions. Procedures Date of Service Date of Service: 10/27/21
[2021-10-27 12:34] LABS: Lactic Acid 0.7 mmol/L (0.5-2.0)
--- NOTE | 2021-10-27 12:49 | MHC.CM.PN ---
PT REPORTS SHE LIVES AT HOME WITH HER AND TWO SONS SHE REPORTS SHE IS INDEPENDENT WORKS AND DRIVES PT DENIES USE OF DME OR HOME SERVICES PT REPORTS SHE IS COVID-10 VACCINATED AND BOOSTED PT CONFIRMS HER PCP IS DEYSI DUDLEY PT DOES NOT HAVE A HCP AND WAS IN TOO MUCH PAIN TO DISCUSS TODAY SHE IS AWARE CM CAN ASSIST IF DESIRED LATER IN ADMISSION CURRENT DC PLAN IS HOME WITH NO SERVICES FAMILY TO TRANSPORT
[2021-10-27 14:48] LABS: MANUAL DIFF FLAG NO
[2021-10-27 15:00] LABS: Basophils Percent Auto 0.2 % (0-2); Eosinophils Percent Auto 0.1 % (0-4); Hematocrit 37.9 % (37.0-47.0); Hemoglobin 12.9 g/dl (12.0-16.0); Imm Gran Abs Auto 0.06 X10*3/uL (0.00-0.03); Imm Gran Pct Auto 0.3 % (0.0-0.4); Lymphocytes Absolute Auto 1.5 X10*3/uL (1.2-4.9); Lymphocytes Percent Auto 8.1 % (20-40); Mean Corpuscular Hemoglobin 31.1 pg (27.0-33.0); Mean Corpuscular Volume 91.3 fL (80.0-98.0); Mean Platelet Volume 10.7 fL (9.4-12.3); Monocytes Absolute Auto 1.1 X10*3/uL (0.1-1.2); Neutrophils Absolute Auto 15.8 x10*3/uL (2.0-8.3); Neutrophils Percent Auto 85.3 % (45-73); Platelet Count 332 X10*3/uL (160-400); Red Blood Count 4.15 X10*6/uL (4.20-5.50); Red Cell Distribution Width 12.7 % (11.0-16.0); White Blood Count 18.5 X10*3/uL (4.8-10.8)
--- NOTE | 2021-10-27 15:57 | MHC.SHP ---
Pre-Procedural Eval Section A Date of Service: 10/27/21 The patient is an INPATIENT: Yes The History & Physical has been completed within 30 days and I have reviewed it.: Yes Section B Chief Complaint: SBO Allergies: Allergies Allergy/AdvReac Type Severity Reaction Status Date / Time amoxicillin [AMOXICILLIN] Allergy Intermediate INVOLUNTARY Unverified 01/27/20 15:56 SPASMS ciprofloxacin [CIPROFLOXACIN] Allergy Intermediate EDEMA Unverified 01/27/20 15:56 Penicillins [PENICILLINS] Allergy Unknown UNKNOWN Unverified 01/27/20 15:56 Plan I have reviewed the history and physical and performed a pertinent physical examination on my patient. No changes have occurred unless specified.
[2021-10-27 18:51] LABS: Appearance Urine CLEAR; Color Urine YELLOW; Glucose Urine UA NEG (NEG); Leukocyte Esterase Urine NEG (NEG); Nitrite Urine NEG (NEG); Specific Gravity - Urine >= 1.030 (1.005-1.025); UACC Culture Trigger NO; Urine Blood TRACE (NEG); Urine Ketones 40 MG/DL (NEG); Urine Protein TRACE MG/DL (NEG-TRACE)
[2021-10-27 19:12] LABS: Bacteria Urine TRACE /LPF; Granular Casts Urine 0-2 /LPF; Mucus Urine 4+ /LPF; Squamous Epithelial Cell Urine 1+ /LPF; WBC Urine 0-2 /HPF (0-4)
[2021-10-27] MEDS: fentaNYL citrate/PF 100 MCG/2 ML VIAL 50 MCG IVPUSH (19:27)
--- NOTE | 2021-10-27 19:27 | PM.OP ---
Brief Operative Note Date of Service: 10/27/21 Pre-op diagnosis: SBO Post-op diagnosis: same Procedure: laparoscopic lysis of adhesions Surgeon: Josué Banegas MD Anesthesia: GETA and local Was an Catalyst Operator Gasoline used for this Procedure?: No Estimated blood loss (mL): 5 Pathology: none sent Condition: stable Disposition: PACU
--- NOTE | 2021-10-27 19:50 | W.PM.OPN ---
Operative Note Operative Note Date of Service: 10/27/21 Narrative: Preop diagnosis: [Small-bowel obstruction] Postop diagnosis: [] Procedure: [Diagnostic laparoscopy, lysis of adhesion] Surgeon: Josué Banegas MD Assist: [None] Anesthesia: [General endotracheal] Estimated blood loss: [3cc] Specimen: [None] Intraoperative findings: Discrete adhesive band from the omentum to the root of the mesentery causing a high-grade SBO. Following lysis of adhesions, the bowel was peristalsing and appeared viable a clear transition point was identified and photographed. The right ovarian cyst was bland and smooth in appearance and left in situ Indications: The patient is a 45-year-old woman who underwent hepatic resection at [facility] for benign liver tumors. Following deliberate loss of 55 lb by diet and exercise, the patient had been doing well until yesterday when she had noted severe, cramping abdominal pain associated with vomiting. CT scan showed a small-bowel obstruction with transition point in the right upper quadrant and nasogastric decompression and pain management was unsuccessful. The patient had worsening abdominal pain and increasing leukocytosis, consequently I recommended exploration. I reviewed the inherent risks of bleeding, infection, possible need for open surgery, the possible need for a bowel resection and the possibility of negative exploration. The option of a 2nd opinion or transfer was reviewed but declined. The possibility of complications that could require additional procedures was also reviewed and apparently understood. The patient her , Diego, seemed of the questions satisfactorily answered and wanted to proceed.] Procedure: [The patient was identified by myself in the preop area and again in the operating room. She was placed supine on the table, induced in general endotracheal anesthesia administered with excellent effect. 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 She received clindamycin, 600 mg IV. After an appropriate time-out, her abdomen was widely prepped and draped in the usual manner for surgery. Preemptive local of Marcaine, 0.5% was used at all trocar insertion sites. I be at the supraumbilical midline and after infiltrating local, use the open cutdown technique to place a 12 mm Fraser trocar. Stay sutures of 0 Polysorb were placed on either side of midline and the fascia and peritoneum opened sharply. A gloved finger was inserted and the Fraser secured with stay sutures. A pneumoperitoneum of 15 mmHg was obtained using carbon dioxide. Next, the 30 degree, 5 mm laparoscopic was inserted. Additional 5 mm trocars were placed using preemptive local and direct laparoscopic vision. Laparoscopy confirmed extensive adhesions from the patient's midline to the right upper quadrant. Using the LigaSure or, careful adhesiolysis was performed under direct vision taking care to avoid injury to the bowel. In the right upper quadrant, ecchymotic and edematous small bowel was encountered and a clear distinct adhesive band from the omentum to the root of the mesentery was encountered and carefully lysed taking care to avoid injuring the bowel. At this point, following the adhesional lysis which took 67 minutes, laparoscopy was completed and the ovarian cyst identified in the right pelvis. Suction irrigation was used to clear out some scant serous fluid. The bowel was again inspected and run carefully given its edematous and ecchymotic nature and no additional adhesions and obstructions were identified. The NG tube was confirmed in the stomach with the help of the anesthesiologist and placed securely to the patient's nose. The patient was returned to neutral position and the abdomen deflated. 0 Polysorb was used to close the umbilical incision and skin closed with 4-0 Monocryl subcuticular sutures. The abdomen was washed and dried, Mastisol a Band-Aid is applied. All sponge needle instrument counts were correct x2. At the patient's request I called her , Diego, at [phone] and apprised him of of the operation and findings. His questions seemed to be satisfactorily answered. I transferred the patient to my service.
[2021-10-27] MEDS: traZODone HCL 50 MG TABLET PO (20:18)
[2021-10-27] MEDS: LORazepam 0.5 MG TABLET PO (20:18)
[2021-10-27] MEDS: Budesonide 180 MCG AER.POW.BA 2 PUFF INHALE (23:48)
[2021-10-28] VITALS (7 sets, daily range): BP systolic 101–160; BP diastolic 57–79; PULSE 69–78; RESP 16–18; TEMP 36.3–37.3; O2SAT 96–100
[2021-10-28] MEDS: Levothyroxine Sodium 50 MCG TABLET PO (05:50)
[2021-10-28] MEDS: Lactated Ringers 1,000 ML 100 ML IVCONT ×2 (05:50→16:31)
[2021-10-28 06:59] LABS: Hematocrit 34.8 % (37.0-47.0); Hemoglobin 11.6 g/dl (12.0-16.0); Mean Corpuscular HGB Conc 33.3 g/dl (31.0-35.0); Mean Corpuscular Hemoglobin 30.8 pg (27.0-33.0); Mean Corpuscular Volume 92.3 fL (80.0-98.0); Mean Platelet Volume 11.2 fL (9.4-12.3); Platelet Count 277 X10*3/uL (160-400); Red Blood Count 3.77 X10*6/uL (4.20-5.50); Red Cell Distribution Width 12.6 % (11.0-16.0); White Blood Count 13.3 X10*3/uL (4.8-10.8)
[2021-10-28 07:52] LABS: Thyroid Stimulating Hormone 0.68 uIU/mL (0.32-4.0)
[2021-10-28] MEDS: HYDROmorphone HCl 1 MG/ML SYRINGE 0.5 MG IVPUSH (08:53)
--- NOTE | 2021-10-28 11:51 | P.PNGS_ITS ---
Subjective Subjective Date of Service: 10/28/21 Patient reports: feels better, pain is less and flatus Interval history: Good by nursing staff as the patient began to have flatus and requested her nasogastric tube be removed. Order was submitted. Since the NG was removed several hours ago, the patient reports she is continuing to do better and reports that her abdominal pain has resolved. She has minimal incisional pain, no bowel movement but continued flatus and is hungry. She otherwise denies interval change to her history and symptoms. Physical Exam Vital Signs: Vital Signs: Last Vital Signs Temp 99.2 F 10/28/21 11:44 Pulse 75 10/28/21 11:44 Resp 18 10/28/21 11:44 BP 131/65 10/28/21 11:44 Pulse Ox 99 10/28/21 11:44 O2 Del Method 10/28/21 11:44 O2 Flow Rate 6 10/27/21 19:15 BMI result Body Mass Index 22.0 On exam, she is afebrile, non tachycardic and nontoxic. She is readily smilin g and in excellent spirits couple things considered Her is at the bedside and his questions were answered Her abdomen is nondistended and soft with appropriate incisional tenderness Dressings are clean dry and intact Objective Data Active Medications Acetaminophen (Acetaminophen 325 Mg Tablet) 975 mg PO Q6H PRN PRN Reason: Pain, Mild (Pain Scale 1-3) Albuterol Sulfate (Albuterol Sulfate 90 Mcg 8 Gm Inhaler) 2 puff INHALE TID PRN PRN Reason: Shortness Of Breath Budesonide (Budesonide 180 Mcg Aer.Pow.Ba) 2 puff INHALE RBID [facility] Last Admin: 10/28/21 10:39 Dose: Not Given Documented By: TWAN Non-Admin Reason: patient took own med Enoxaparin Sodium (Enoxaparin Sodium 40 Mg/0.4 Ml Syringe) 40 mg SUBCUT Q24H [facility] Last Admin: 10/27/21 23:44 Dose: 40 mg Documented By: MIKEL Fentanyl (Fentanyl Citrate/Pf 100 Mcg/2 Ml Vial) 50 mcg IVPUSH Q5M PRN; Pr otocol PRN Reason: Pain, Severe (Pain Scale 7-10) Last Admin: 10/27/21 19:27 Dose: 50 mcg Documented By: ANDERS Fluoxetine HCl (Fluoxetine Hcl 20 Mg Capsule) 40 mg PO DAILY [facility] Last Admin: 10/28/21 08:12 Dose: Not Given Documented By: TWAN Non-Admin Reason: NPO Hydromorphone HCl (Hydromorphone Hcl 1 Mg/Ml Syringe) 0.5 mg IVPUSH Q3H PRN; Protocol PRN Reason: Pain, Severe (Pain Scale 7-10) Last Admin: 10/28/21 08:53 Dose: 0.5 mg Documented By: TWAN Lactated Ringer's (Lr) 1,000 mls @ 100 mls/hr IVCONT .Q10H [facility] Last Admin: 10/28/21 05:50 Dose: 100 mls/hr Documented By: MIKEL Levothyroxine Sodium (Levothyroxine Sodium 50 Mcg Tablet) 50 mcg PO DAILY@0630 [facility] Last Admin: 10/28/21 05:50 Dose: 50 mcg Documented By: MIKEL Lorazepam (Lorazepam 0.5 Mg Tablet) 0.5 mg PO DAILY PRN PRN Reason: Anxiety Last Admin: 10/27/21 20:18 Dose: 0.5 mg Documented By: MIKEL Metformin HCl (Metformin Hcl 500 Mg Tablet) 500 mg PO DAILY [facility] Ondansetron HCl (Ondansetron Hcl 4 Mg/2 Ml Vial) 4 mg IVPUSH Q8H PRN PRN Reason: Nausea and Vomiting Ondansetron HCl (Ondansetron Hcl 4 Mg/2 Ml Vial) 4 mg IVPUSH ONCE PRN PRN Reason: Nausea and Vomiting Oxycodone HCl (Oxycodone Hcl Immed Release 5 Mg Tablet) 5 mg PO Q4H PRN PRN Reason: Pain, Severe (Pain Scale 7-10) Pharmacy Consult (Consult Rx Perform Med Rec) 1 each MISCELLANE ONCE PRN PRN Reason: Consult order Trazodone HCl (Trazodone Hcl 50 Mg Tablet) 50 - 150 mg PO BEDTIME PRN PRN Reason: Insomnia Last Admin: 10/27/21 20:18 Dose: 50 mg Documented By: MIKEL Labs CBC & Chem 7: 10/28/21 05:53 10/27/21 05:59 Labs: Laboratory Results - last 24 hr 10/27/21 10/27/21 10/27/21 11:47 14:41 18:00 MCV 91.3 MCH 31.1 MCHC 34.0 RDW 12.7 Plt Count 332 MPV 10.7 Immature Gran % (Auto) 0.3 Neut % (Auto) 85.3 H Lymph % (Auto) 8.1 L [place] % (Auto) 6.0 Eos % (Auto) 0.1 Baso % (Auto) 0.2 Lymph # (Auto) 1.5 [place] # (Auto) 1.1 Eos # (Auto) 0.0 Baso # (Auto) 0.0 Abs Immat Gran (auto) 0.06 H Absolute Neuts (auto) 15.8 H Absolute Nucleated RBC 0.000 Nucleated RBC % (auto) 0.0 Lactic Acid 0.7 TSH Urine Color YELLOW Urine Appearance CLEAR Urine pH 6.0 Ur Specific [place] >= 1.030 H Urine Protein TRACE Urine Glucose (UA) NEG Urine Ketones 40 Urine Blood TRACE Urine Nitrite NEG Ur Leukocyte Esterase NEG Urine RBC 5-9 H Urine WBC 0-2 Ur Squamous Epith Cells 1+ Urine Bacteria TRACE Hyaline Casts 1-4 Granular Casts 0-2 Urine Mucus 4+ 10/28/21 10/28/21 05:53 05:53 MCV 92.3 MCH 30.8 MCHC 33.3 RDW 12.6 Plt Count 277 MPV 11.2 Immature Gran % (Auto) Neut % (Auto) Lymph % (Auto) [place] % (Auto) Eos % (Auto) Baso % (Auto) Lymph # (Auto) [place] # (Auto) Eos # (Auto) Baso # (Auto) Abs Immat Gran (auto) Absolute Neuts (auto) Absolute Nucleated RBC 0.000 Nucleated RBC % (auto) 0.0 Lactic Acid TSH 0.68 Urine Color Urine Appearance Urine pH Ur Specific [place] Urine Protein Urine Glucose (UA) Urine Ketones Urine Blood Urine Nitrite Ur Leukocyte Esterase Urine RBC Urine WBC Ur Squamous Epith Cells Urine Bacteria Hyaline Casts Granular Casts Urine Mucus Procedures Date of Service Date of Service: 10/28/21 Progress Note: A&P Assessment and plan (1) Small bowel obstruction: Status: Acute (2) Asthma: Status: Acute (3) PCOS (polycystic ovarian syndrome): Status: Acute Plan Start clear liquids. Advance slowly. Resume home medications as ordered. A DC the Tylenol suppository in favor of p.o. Tylenol. [place] oxycodone for breakthrough pain. Contact me for worsening abdominal pain, fevers or tachycardia. Encourage walking and incentive spirometry. Time Spent With Patient Time: Total time spent is greater than 50% in coordination of care (as documented) at patient's floor/unit and/or counseling patient: Quality Stroke Does the patient have a stroke diagnosis?: No VTE Prior VTE?: No VTE Risk Level:: Surgical - very high VTE Device Contraindication: Treatment Not Indicated VTE Drug Contraindication: N/A - Med Ordered
--- NOTE | 2021-10-28 11:58 | HO.PM.IMPN ---
Subjective Subjective Date of Service: 10/28/21 Interval History: POD#1 NGT removed this AM Had flatus afterwards Pain much improved, no N/V Review of Systems Review of Systems: Yes all other systems are reviewed and are negative Physical Exam Vital Signs: Vital Signs: Last Vital Signs Temp 99.2 F 10/28/21 11:44 Pulse 75 10/28/21 11:44 Resp 18 10/28/21 11:44 BP 131/65 10/28/21 11:44 Pulse Ox 99 10/28/21 11:44 O2 Del Method 10/28/21 11:44 O2 Flow Rate 6 10/27/21 19:15 BMI result Body Mass Index 22.0 Gen: in no acute distress HEENT: sclera anicteric, moist mucus membranes Neck: supple Lungs: clear to auscultation bilaterally Heart: regular rate and rhythm, no murmurs Abd: soft, NABS x4, laparoscopic incisions C/D/I Ext: no edema Skin: warm/well-perfused Neuro: alert and oriented x3, no focal findings Psych: appropriate affect Objective Data Active Medications Acetaminophen (Acetaminophen 325 Mg Tablet) 975 mg PO Q6H PRN PRN Reason: Pain, Mild (Pain Scale 1-3) Albuterol Sulfate (Albuterol Sulfate 90 Mcg 8 Gm Inhaler) 2 puff INHALE TID PRN PRN Reason: Shortness Of Breath Budesonide (Budesonide 180 Mcg Aer.Pow.Ba) 2 puff INHALE RBID [facility] Last Admin: 10/28/21 10:39 Dose: Not Given Documented By: TWAN Non-Admin Reason: patient took own med Enoxaparin Sodium (Enoxaparin Sodium 40 Mg/0.4 Ml Syringe) 40 mg SUBCUT Q24H [facility] Last Admin: 10/27/21 23:44 Dose: 40 mg Documented By: MIKEL Fentanyl (Fentanyl Citrate/Pf 100 Mcg/2 Ml Vial) 50 mcg IVPUSH Q5M PRN; Protocol PRN Reason: Pain, Severe (Pain Scale 7-10) Last Admin: 10/27/21 19:27 Dose: 50 mcg Documented By: ANDERS Fluoxetine HCl (Fluoxetine Hcl 20 Mg Capsule) 40 mg PO DAILY [facility] Last Admin: 10/28/21 08:12 Dose: Not Given Documented By: TWAN Non-Admin Reason: NPO Hydromorphone HCl (Hydromorphone Hcl 1 Mg/Ml Syringe) 0.5 mg IVPUSH Q3H PRN; Protocol PRN Reason: Pain, Severe (Pain Scale 7-10) Last Admin: 10/28/21 08:53 Dose: 0.5 mg Documented By: TWAN Lactated Ringer's (Lr) 1,000 mls @ 100 mls/hr IVCONT .Q10H [facility] Last Admin: 10/28/21 05:50 Dose: 100 mls/hr Documented By: MIKEL Levothyroxine Sodium (Levothyroxine Sodium 50 Mcg Tablet) 50 mcg PO DAILY@0630 [facility] Last Admin: 10/28/21 05:50 Dose: 50 mcg Documented By: MIKEL Lorazepam (Lorazepam 0.5 Mg Tablet) 0.5 mg PO DAILY PRN PRN Reason: Anxiety Last Admin: 10/27/21 20:18 Dose: 0.5 mg Documented By: MIKEL Metformin HCl (Metformin Hcl 500 Mg Tablet) 500 mg PO DAILY [facility] Ondansetron HCl (Ondansetron Hcl 4 Mg/2 Ml Vial) 4 mg IVPUSH Q8H PRN PRN Reason: Nausea and Vomiting Ondansetron HCl (Ondansetron Hcl 4 Mg/2 Ml Vial) 4 mg IVPUSH ONCE PRN PRN Reason: Nausea and Vomiting Oxycodone HCl (Oxycodone Hcl Immed Release 5 Mg Tablet) 5 mg PO Q4H PRN PRN Reason: Pain, Severe (Pain Scale 7-10) Pharmacy Consult (Consult Rx Perform Med Rec) 1 each MISCELLANE ONCE PRN PRN Reason: Consult order Trazodone HCl (Trazodone Hcl 50 Mg Tablet) 50 - 150 mg PO BEDTIME PRN PRN Reason: Insomnia Last Admin: 10/27/21 20:18 Dose: 50 mg Documented By: MIKEL Labs CBC & Chem 7: 10/28/21 05:53 10/27/21 05:59 Labs: Laboratory Results - last 24 hr 10/27/21 10/27/21 10/27/21 11:47 14:41 18:00 MCV 91.3 MCH 31.1 MCHC 34.0 RDW 12.7 Plt Count 332 MPV 10.7 Immature Gran % (Auto) 0.3 Neut % (Auto) 85.3 H Lymph % (Auto) 8.1 L [place] % (Auto) 6.0 Eos % (Auto) 0.1 Baso % (Auto) 0.2 Lymph # (Auto) 1.5 [place] # (Auto) 1.1 Eos # (Auto) 0.0 Baso # (Auto) 0.0 Abs Immat Gran (auto) 0.06 H Absolute Neuts (auto) 15.8 H Absolute Nucleated RBC 0.000 Nucleated RBC % (auto) 0.0 Lactic Acid 0.7 TSH Urine Color YELLOW Urine Appearance CLEAR Urine pH 6.0 Ur Specific [place] >= 1.030 H Urine Protein TRACE Urine Glucose (UA) NEG Urine Ketones 40 Urine Blood TRACE Urine Nitrite NEG Ur Leukocyte Esterase NEG Urine RBC 5-9 H Urine WBC 0-2 Ur Squamous Epith Cells 1+ Urine Bacteria TRACE Hyaline Casts 1-4 Granular Casts 0-2 Urine Mucus 4+ 10/28/21 10/28/21 05:53 05:53 MCV 92.3 MCH 30.8 MCHC 33.3 RDW 12.6 Plt Count 277 MPV 11.2 Immature Gran % (Auto) Neut % (Auto) Lymph % (Auto) [place] % (Auto) Eos % (Auto) Baso % (Auto) Lymph # (Auto) [place] # (Auto) Eos # (Auto) Baso # (Auto) Abs Immat Gran (auto) Absolute Neuts (auto) Absolute Nucleated RBC 0.000 Nucleated RBC % (auto) 0.0 Lactic Acid TSH 0.68 Urine Color Urine Appearance Urine pH Ur Specific [place] Urine Protein Urine Glucose (UA) Urine Ketones Urine Blood Urine Nitrite Ur Leukocyte Esterase Urine RBC Urine WBC Ur Squamous Epith Cells Urine Bacteria Hyaline Casts Granular Casts Urine Mucus Assessment and Plan (1) Small bowel obstruction: Status: Acute Plan hospital d#3 45yo F with PCOS, prior resection of benign liver neoplasm, admitted for SBO # SBO - POD#1 laparoscopic LEONELA - advance to clear liquids today # leukocytosis - likely due to SBO # PCOS - resume MTF upon d/c # right adnexal cyst, 7.2 x 8.1 x 7.2 cm unilocular? - recommend repeat pelvic ultrasound in 6-12 weeks and follow-up with OBGYN # mild persistent asthma - continue ICS, prn albuterol #? anxiety - continue fluoxetine, lorazepam, trazodone # hypothyroidism - continue LT4 # VTE ppx: SCDs In my clinical judgment, the patient requires continued hospitalization for the following reasons: postop, IV fluids Quality Stroke Does the patient have a stroke diagnosis?: No VTE Prior VTE?: No VTE Risk Level:: Surgical - very high VTE Device Contraindication: Treatment Not Indicated VTE Drug Contraindication: N/A - Med Ordered
[2021-10-28] MEDS: FLUoxetine HCl 20 MG CAPSULE 40 MG PO (12:17)
[2021-10-28] MEDS: Acetaminophen 325 MG TABLET 975 MG PO ×2 (12:17→19:27)
[2021-10-28] MEDS: traZODone HCL 50 MG TABLET PO (19:27)
[2021-10-28] MEDS: LORazepam 0.5 MG TABLET PO (19:27)
[2021-10-28] MEDS: Budesonide 180 MCG AER.POW.BA 2 PUFF INHALE (19:28)
[2021-10-28] MEDS: Enoxaparin Sodium 40 MG/0.4 ML SYRINGE SUBCUT (23:10)
[2021-10-29 03:17] VITALS: BP 117/82; PULSE 79; RESP 17; TEMP 36.5; O2SAT 97
[2021-10-29] MEDS: Levothyroxine Sodium 50 MCG TABLET PO (05:46)
[2021-10-29] MEDS: Acetaminophen 325 MG TABLET 975 MG PO ×2 (05:48→11:53)
[2021-10-29 07:04] LABS: Hematocrit 31.5 % (37.0-47.0); Hemoglobin 10.4 g/dl (12.0-16.0); Mean Platelet Volume 11.3 fL (9.4-12.3); Platelet Count 255 X10*3/uL (160-400); Red Blood Count 3.35 X10*6/uL (4.20-5.50); Red Cell Distribution Width 12.7 % (11.0-16.0); White Blood Count 6.7 X10*3/uL (4.8-10.8)
[2021-10-29 07:44] VITALS: BP 125/72; PULSE 67; RESP 18; TEMP 36.8; O2SAT 97
--- NOTE | 2021-10-29 07:46 | P.PNGS_ITS ---
Subjective Subjective Date of Service: 10/29/21 Patient reports: no new complaints, feels better, pain is less, flatus, no bowel movement and nausea (no nausea nor vomiting) Interval history: Patient denies any new complaints. She reports that she has less pain than yesterday, no nausea nor vomiting and tolerated liquids with no issue. She is passing gas but not had a bowel movement since before surgery. She otherwise denies headache, chest pain, lower extremity swelling or other new symptoms. Physical Exam Vital Signs: Vital Signs: Last Vital Signs Temp 97.7 F 10/29/21 03:17 Pulse 79 10/29/21 03:17 Resp 17 10/29/21 03:17 BP 117/82 10/29/21 03:17 Pulse Ox 97 10/29/21 03:17 O2 Del Method 10/29/21 03:17 O2 Flow Rate 6 10/27/21 19:15 BMI result Body Mass Index 22.0 She is afebrile and non tachycardic. Expected incisional tenderness remains with no peritoneal sign Objective Data Active Medications Acetaminophen (Acetaminophen 325 Mg Tablet) 975 mg PO Q6H PRN PRN Reason: Pain, Mild (Pain Scale 1-3) Last Admin: 10/29/21 05:48 Dose: 975 mg Documented By: MIKEL Albuterol Sulfate (Albuterol Sulfate 90 Mcg 8 Gm Inhaler) 2 puff INHALE TID PRN PRN Reason: Shortness Of Breath Budesonide (Budesonide 180 Mcg Aer.Pow.Ba) 2 puff INHALE RBID [facility] Last Admin: 10/28/21 19:28 Dose: 2 puff Documented By: MIKEL Enoxaparin Sodium (Enoxaparin Sodium 40 Mg/0.4 Ml Syringe) 40 mg SUBCUT Q24H [facility] Last Admin: 10/28/21 23:10 Dose: 40 mg Documented By: MIKEL Fentanyl (Fentanyl Citrate/Pf 100 Mcg/2 Ml Vial) 50 mcg IVPUSH Q5M PRN; Protocol PRN Reason: Pain, Severe (Pain Scale 7-10) Last Admin: 10/27/21 19:27 Dose: 50 mcg Documented By: ANDERS Fluoxetine HCl (Fluoxetine Hcl 20 Mg Capsule) 40 mg PO DAILY [facility] Last Admin: 10/28/21 12:17 Dose: 40 mg Documented By: TWAN Hydromorphone HCl (Hydromorphone Hcl 1 Mg/Ml Syringe) 0.5 mg IVPUSH Q3H PRN; Protocol PRN Reason: Pain, Severe (Pain Scale 7-10) Last Admin: 10/28/21 08:53 Dose: 0.5 mg Documented By: TWAN Levothyroxine Sodium (Levothyroxine Sodium 50 Mcg Tablet) 50 mcg PO DAILY@0630 [facility] Last Admin: 10/29/21 05:46 Dose: 50 mcg Documented By: MIKEL Lorazepam (Lorazepam 0.5 Mg Tablet) 0.5 mg PO DAILY PRN PRN Reason: Anxiety Last Admin: 10/28/21 19:27 Dose: 0.5 mg Documented By: MIKEL Metformin HCl (Metformin Hcl 500 Mg Tablet) 500 mg PO DAILY [facility] Ondansetron HCl (Ondansetron Hcl 4 Mg/2 Ml Vial) 4 mg IVPUSH Q8H PRN PRN Reason: Nausea and Vomiting Ondansetron HCl (Ondansetron Hcl 4 Mg/2 Ml Vial) 4 mg IVPUSH ONCE PRN PRN Reason: Nausea and Vomiting Oxycodone HCl (Oxycodone Hcl Immed Release 5 Mg Tablet) 5 mg PO Q4H PRN PRN Reason: Pain, Severe (Pain Scale 7-10) Pharmacy Consult (Consult Rx Perform Med Rec) 1 each MISCELLANE ONCE PRN PRN Reason: Consult order Trazodone HCl (Trazodone Hcl 50 Mg Tablet) 50 - 150 mg PO BEDTIME PRN PRN Reason: Insomnia Last Admin: 10/28/21 19:27 Dose: 150 mg Documented By: MIKEL Labs CBC & Chem 7: 10/29/21 05:46 10/27/21 05:59 Labs: Laboratory Results - last 24 hr 10/28/21 10/29/21 05:53 05:46 MCV 94.0 MCH 31.0 MCHC 33.0 RDW 12.7 Plt Count 255 MPV 11.3 Absolute Nucleated RBC 0.000 Nucleated RBC % (auto) 0.0 TSH 0.68 Procedures Date of Service Date of Service: 10/29/21 Progress Note: A&P Assessment and plan (1) Small bowel obstruction: Status: Acute (2) Asthma: Status: Acute (3) PCOS (polycystic ovarian syndrome): Status: Acute Plan Postop day 2 status post laparoscopic lysis of adhesions Advanced diet. Patient requests gluten free regular diet If breakfast and lunch tolerated, will DC later today. A bowel movement is not needed since the patient did not have any colon surgery. Instructions regarding incision care, diet, activity restrictions were all reviewed and her questions answered. Brandy the last day of school so work note excusing her from tomorrow will be provided in follow-up. Will need to see the patient in 7-10 days for abdominal/suture check and she will contact me or report to the nearest emergency room if her abdominal pain returns or she develops new issues such as chest pain, trouble breathing or leg swelling Time Spent With Patient Time: Total time spent is greater than 50% in coordination of care (as documented) at patient's floor/unit and/or counseling patient: Quality Stroke Does the patient have a stroke diagnosis?: No VTE Prior VTE?: No VTE Risk Level:: Surgical - very high VTE Device Contraindication: Treatment Not Indicated VTE Drug Contraindication: N/A - Med Ordered
[2021-10-29 07:51] VITALS: BP 188/79; PULSE 70; RESP 18; TEMP 36.8; O2SAT 96
[2021-10-29 07:52] LABS: Anion Gap 10 (12-20); Blood Urea Nitrogen 9 mg/dL (9-16); Calcium 7.9 mg/dL (8.4-10.2); Carbon Dioxide 27 mmol/L (22-29); Chloride 108 mmol/L (96-108); Creatinine Clr Calc Pharmacy 99.9; Estimated Glomerular Filt Rate > 60; Glucose Random 82 mg/dL (60-115); Potassium 3.7 mmol/L (3.3-5.1); Sodium 141 mmol/L (135-145)
--- NOTE | 2021-10-29 08:08 | HO.POSTANES ---
Post Anesthesia Evaluation Post Anesthesia Evaluation Vital Signs: Vital Signs Temp Pulse Resp BP Pulse Ox O2 Del Method O2 Flow Rate 10/29/21 07:51 98.2 F 70 18 188/79 H 96 Nasal Cannula 2 10/29/21 07:44 98.3 F 67 18 125/72 97 Room Air 10/29/21 03:17 97.7 F 79 17 117/82 97 Room Air 10/28/21 23:21 98.3 F 77 17 101/57 L 96 Room Air Anesthesia: General Endotracheal-GETA Mental Status: Awake Pain Control: Satisfactory Nausea/Vomiting: None Hydration: Adequate Anesthesia-Related Issues: No Anes. Related Issues
[2021-10-29] MEDS: metFORMIN HCl 500 MG TABLET PO (08:10)
[2021-10-29] MEDS: FLUoxetine HCl 20 MG CAPSULE 40 MG PO (08:10)
--- NOTE | 2021-10-29 10:17 | HO.PM.IMPN ---
Subjective Subjective Date of Service: 10/29/21 Interval History: Tolerating clears, passing flatus. Post op pain well-controlled. Review of Systems Review of Systems: Yes all other systems are reviewed and are negative Physical Exam Vital Signs: Vital Signs: Last Vital Signs Temp 98.2 F 10/29/21 07:51 Pulse 70 10/29/21 07:51 Resp 18 10/29/21 07:51 BP 188/79 H 10/29/21 07:51 Pulse Ox 96 10/29/21 07:51 O2 Del Method 10/29/21 07:51 O2 Flow Rate 2 10/29/21 07:51 BMI result Body Mass Index 22.0 Gen: in no acute distress HEENT: sclera anicteric, moist mucus membranes Neck: supple Lungs: clear to auscultation bilaterally Heart: regular rate and rhythm, no murmurs Abd: soft, NABS x4, laparoscopic incisions C/D/I Ext: no edema Skin: warm/well-perfused Neuro: alert and oriented x3, no focal findings Psych: appropriate affect Objective Data Active Medications Acetaminophen (Acetaminophen 325 Mg Tablet) 975 mg PO Q6H PRN PRN Reason: Pain, Mild (Pain Scale 1-3) Last Admin: 10/29/21 05:48 Dose: 975 mg Documented By: MIKEL Albuterol Sulfate (Albuterol Sulfate 90 Mcg 8 Gm Inhaler) 2 puff INHALE TID PRN PRN Reason: Shortness Of Breath Budesonide (Budesonide 180 Mcg Aer.Pow.Ba) 2 puff INHALE RBID [facility] Last Admin: 10/28/21 19:28 Dose: 2 puff Documented By: MIKEL Enoxaparin Sodium (Enoxaparin Sodium 40 Mg/0.4 Ml Syringe) 40 mg SUBCUT Q24H [facility] Last Admin: 10/28/21 23:10 Dose: 40 mg Documented By: MIKEL Fentanyl (Fentanyl Citrate/Pf 100 Mcg/2 Ml Vial) 50 mcg IVPUSH Q5M PRN; Protocol PRN Reason: Pain, Severe (Pain Scale 7-10) Last Admin: 10/27/21 19:27 Dose: 50 mcg Documented By: ANDERS Fluoxetine HCl (Fluoxetine Hcl 20 Mg Capsule) 40 mg PO DAILY [facility] Last Admin: 10/29/21 08:10 Dose: 40 mg Documented By: JAZ Hydromorphone HCl (Hydromorphone Hcl 1 Mg/Ml Syringe) 0.5 mg IVPUSH Q3H PRN; Protocol PRN Reason: Pain, Severe (Pain Scale 7-10) Last Admin: 10/28/21 08:53 Dose: 0.5 mg Documented By: TWAN Levothyroxine Sodium (Levothyroxine Sodium 50 Mcg Tablet) 50 mcg PO DAILY@0630 [facility] Last Admin: 10/29/21 05:46 Dose: 50 mcg Documented By: MIKEL Lorazepam (Lorazepam 0.5 Mg Tablet) 0.5 mg PO DAILY PRN PRN Reason: Anxiety Last Admin: 10/28/21 19:27 Dose: 0.5 mg Documented By: MIKEL Metformin HCl (Metformin Hcl 500 Mg Tablet) 500 mg PO DAILY [facility] Last Admin: 10/29/21 08:10 Dose: 500 mg Documented By: JAZ Ondansetron HCl (Ondansetron Hcl 4 Mg/2 Ml Vial) 4 mg IVPUSH Q8H PRN PRN Reason: Nausea and Vomiting Ondansetron HCl (Ondansetron Hcl 4 Mg/2 Ml Vial) 4 mg IVPUSH ONCE PRN PRN Reason: Nausea and Vomiting Oxycodone HCl (Oxycodone Hcl Immed Release 5 Mg Tablet) 5 mg PO Q4H PRN PRN Reason: Pain, Severe (Pain Scale 7-10) Pharmacy Consult (Consult Rx Perform Med Rec) 1 each MISCELLANE ONCE PRN PRN Reason: Consult order Trazodone HCl (Trazodone Hcl 50 Mg Tablet) 50 - 150 mg PO BEDTIME PRN PRN Reason: Insomnia Last Admin: 10/28/21 19:27 Dose: 150 mg Documented By: MIKEL Labs CBC & Chem 7: 10/29/21 05:46 10/29/21 05:46 Labs: Laboratory Results - last 24 hr 10/29/21 10/29/21 05:46 05:46 MCV 94.0 MCH 31.0 MCHC 33.0 RDW 12.7 Plt Count 255 MPV 11.3 Absolute Nucleated RBC 0.000 Nucleated RBC % (auto) 0.0 Anion Gap 10 L Estim Creat Clear Calc 99.9 Estimated GFR > 60 Random Glucose 82 Calcium 7.9 L D Assessment and Plan (1) Small bowel obstruction: Status: Acute Plan hospital d#4 45yo F with PCOS, prior resection of benign liver neoplasm, admitted for SBO # SBO - POD#2 laparoscopic LEONELA - advanced to solid diet today and if tolerates, will be d/c'ed by Gen Surg # leukocytosis - likely due to SBO; resolved # PCOS - resume MTF upon d/c # right adnexal cyst, 7.2 x 8.1 x 7.2 cm unilocular? - recommend repeat pelvic ultrasound in 6-12 weeks and follow-up with OBGYN # mild persistent asthma - continue ICS, prn albuterol #? anxiety - continue fluoxetine, lorazepam, trazodone # hypothyroidism - continue LT4 # VTE ppx: SCDs Quality Stroke Does the patient have a stroke diagnosis?: No VTE Prior VTE?: No VTE Risk Level:: Surgical - very high VTE Device Contraindication: Treatment Not Indicated VTE Drug Contraindication: N/A - Med Ordered
[2021-10-29 11:12] VITALS: BP 110/61; PULSE 89; RESP 18; TEMP 36.7; O2SAT 99
--- NOTE | 2021-10-29 12:29 | MHC.CM.PN ---
NURSE BULLDOGGER NOTE ELECTRONIC MEDICAL RECORD [id number] ALONG WITH CASE DISCUSSED WITH THE HOSPITALIST , MET WITH PATIENT , PER ROUNDS HOSPITALIST NOTES POSSIBLE DISCHARGE HOME TODAY . PATIENT IS AWARE OF THIS. DISCHARGE PLAN HOME NO SERVICES PCP DR DEYSI DUDLEY PATIENT INSTRUCTED TO CALL FOR APPOINTMENT TO BE SEEN FOR POST HOSPITAL DISCHARGE 2, SURGEON FOLLOW UP PER DISCHARGE INSTRUCTIONS, 3 RECOMMENDED PLATING ENGINEER FOLLOW UP PER DISCHARGE INSTRUCTIONS 4. TRANSPORTATION FAMILY
--- NOTE | 2021-10-29 12:56 | PM.DS ---
DS: Providers Provider Date of Service: 10/29/21 Date of admission: 10/26/21 23:28 Primary care physician: Baron Sepulveda MD Consults: 10/26/21 22:41 Consult to General Surgery Routine Consulting Provider: Josué Banegas Reason for consultation: SBO Has provider been notified: Yes 10/26/21 23:30 Consult to General Surgery Routine Consulting Provider: Gilmar Zhao Reason for consultation: SBO Has provider been notified: No DS: Diagnosis Discharge Diagnosis (1) Small bowel obstruction: Start date: 10/26/21 Status: Acute DS: Summary Hospital Course Hospital Course: The patient was admitted to the medical service with a small-bowel obstruction. She had continued and worsening pain, leukocytosis and I recommended a laparoscopy, possible laparotomy. Patient was taken to the operating room and underwent a laparoscopic lysis of adhesions where an adhesive band from the patient's omentum and liver resection caused an obstruction of her small bowel. The bowel was viable and following resection, by postop day 1, she was passing gas. By postop day 2, she tolerated a regular diet and was discharged home in improved condition. Instructions regarding diet and activity reviewed and apparently understood. Overall condition at the time of discharge was improved. Status at Discharge Functional status at discharge: independent ambulation Overall status at discharge: patient is back to baseline Time Spent with Patient Time attestation: Total time spent providing and/or coordinating discharge services: Discharge coordination time: Greater than 30 minutes Quality: Safe Use of Opioids Does Pt have an Active Cancer Diagnosis on the Problem List?: No Quality: Stroke Does the patient have a stroke diagnosis?: No Physical Exam Vital Signs: Vital Signs: Last Vital Signs Temp 98.1 F 10/29/21 11:12 Pulse 89 10/29/21 11:12 Resp 18 10/29/21 11:12 BP 110/61 10/29/21 11:12 Pulse Ox 99 10/29/21 11:12 O2 Del Method 10/29/21 11:12 O2 Flow Rate 2 10/29/21 07:51 BMI result Body Mass Index 22.0 See postop day 2 progress note. DS: Data Data Completed and Pending Labs on day of discharge: Laboratory Results - last 24 hr 10/29/21 10/29/21 05:46 05:46 WBC 6.7 RBC 3.35 L Hgb 10.4 L Hct 31.5 L MCV 94.0 MCH 31.0 MCHC 33.0 RDW 12.7 Plt Count 255 MPV 11.3 Absolute Nucleated RBC 0.000 Nucleated RBC % (auto) 0.0 Sodium 141 Potassium 3.7 Chloride 108 Carbon Dioxide 27 Anion Gap 10 L BUN 9 Creatinine 0.71 Estim Creat Clear Calc 99.9 Estimated GFR > 60 Random Glucose 82 Calcium 7.9 L D Discharge Plan Discharge Patient Disposition: Home, Self-Care Discharge Diagnosis: SBO s/p laparoscopic LEONELA Referrals: Baron Sepulveda MD [Primary Care Provider] - 1 Week Josué Banegas MD [Physician] - 1 Week Discharge Medications: Continued metformin 500 mg tablet 1 tab PO DAILY trazodone 50 mg tablet 1 - 3 tab PO BEDTIME PRN (Reason: Insomnia) lorazepam 0.5 mg tablet 1 tab PO DAILY PRN (Reason: Anxiety) levothyroxine 50 mcg tablet 1 tab PO DAILY albuterol sulfate 90 mcg/actuation HFA aerosol inhaler 2 puff inhalation TID PRN (Reason: Shortness Of Breath) fluoxetine 20 mg capsule 2 cap PO QAM Pulmicort Flexhaler 180 mcg/actuation aerosol powdr breath activated 2 puff inhalation BID Discharge Orders: Discharge Order (Routine); Ordered 10/29/21 Ordered By: Josué Banegas Diet: advance to usual diet Activity on Discharge: No heavy lifting Stand Alone Forms: Patient Portal Discharge page Activity Restrictions/Additional Instructions: You had a laparoscopic lysis of adhesions (cutting of scar tissue related to your liver operation) by Dr. Banegas. To allow adequate healing, you must not lift more than 20 lb for the next 4 weeks. Strenuous activities such as hiking uphill, digging/gardening, swimming, yoga, weightlifting, lifting heavy bags, martial arts, yoga, sports like soccer, golf or baseball or other physical activities must be avoided to prevent healing problems and hernia recurrence. If you have questions regarding a specific activity, please ask Dr. Banegas. Your dressings/bandaids should be removed today. After 48 hours when you have removed the dressings, it is OK to shower today. Do not soak in a tub or pool until your incisions are completely healed, which usually takes at least 2 to 3 weeks, sometimes longer. In the shower, you can allow soap and water to run over your incisions in a shower and Steri-Strips and thoroughly rinse the area. There are paper tapes known as butterflies/Steri-Strips on your incisions, leave them in place and they will fall off on their own in the next 1-2 weeks. You do not need to place a new bandage on your incision unless your clothing rubs on the incision and causes irritation. You may find that pants with an elastic waist or suspenders are more comfortable than pants with a belt until your incision completely heals. You should not soak in a tub, go into a pool, or swimming in ponds, garzon or lakes. Please allow the paper tapes to dry before covering with a dressing/bandaid. Be sure to schedule a follow-up appointment a week after surgery. Please bring any papers regarding employment and activity restrictions to that appointment. Remember that you are not disabled and can perform light duty. You should contact your employer and tell them you need light duty for medical reasons prior to your operation. Some employers will not allow their employees to work until that have no limitations; it is important you do this because we cannot discuss your personal health matters unless it is a Workman's Comp injury. Bruising and swelling is normal and to be expected. Due to gravity, this may track down towards your pubic area which is normal. If the area becomes hot, red, swollen or drains pus, if you have worsening pains, fevers over 100F, severe abdominal or chest pain or trouble breathing, please report to the nearest emergency department. If you have issues with constipation, you should purchase jkrk-ile-bjxxyce stool softener known as Colace/docusate, 100 mg and take 2 tablets in the morning with breakfast and 2 tablets after dinner in the evening until you have normal bowel movements. If you experience diarrhea from the stool softeners, that is normal & will resolve after stopping the medication. You should resume your regular medications unless otherwise directed by Dr. Banegas. You can take tgwe-kxx-zkasywe Tylenol/acetaminophen with kzar-jwc-uajqlko ibuprofen or naproxen for pain unless you have an allergy or medical reason you are not not allowed to take these medications, such as peptic ulcers, taking blood thinners or kidney problems. You should also use ice packs to the operative site to help minimize pain and swelling for the 1st 3 days, or as needed afterwards. Unless there is a medical reason to avoid these medicines, you should take 2 aopq-rro-hgoepcb Tylenol with two (2) eimk-owa-peavhsn ibuprofen together, every 6 hours for the first 3 days to help with pain. Care Plan Goals: Allow 4 weeks of healing for incisions Health Concerns: follow up with PCP for asthma incidental adenxal [ovarian/Fallopian tube] cyst Plan of Treatment: Diet/nutrition , continue prior medications Incidental finding on CT scan: 7.2 x 8.1 x 7.2 cm unilocular right adnexal cyst, benign-appearing. Recommend follow-up pelvic ultrasound in 6-12 weeks per ACR guidelines 2013 to assess functional status. Pleases see your band director to arrange this. Assessment: resolved Small bowel obstruction, s/p lysis of adhesion (cutting scar tissue)
--- NOTE | 2021-10-29 13:12 | P.CDIC_ITS ---
CDI Concurrent Query Documentation Clarification: PHYSICIAN'S DOCUMENTATION REQUEST Date of Query: 10/29/21 1312 Patient Name: Naima Greene Admit Date: 10/26/21 Dear Doctor, A review of the medical record indicates additional documentation may be needed. Please review below and update the documentation accordingly. Risk Factors/Clinical Indicators/Treatments per surgerical note: Patient underwent a laparoscopic lysis of adhesions where an adhesive band from the patient's omentum and liver resection caused an obstruction of her small bowel Based on the above, could you clarify in the Progress Notes the appropriate diagnosis, if significant, that supports the above abnormalities and additional evaluation, monitoring, and/or treatment rendered: * SBO with partial obstruction * SBO with complete obstruction * Other (please specify) * Unable to determine Use of terms such as suspected, likely, concern for, or probable (associated with a specific diagnosis that is being evaluated, monitored, or treated as if it exists) are acceptable and can be coded in the inpatient setting, when documented at the time of discharge. Thank you, Yodit White RN Extension: [phone] Please use your independent medical judgment in providing your response. THIS QUERY IS PART OF THE PERMANENT MEDICAL RECORD Provider Response: Other Other Diagnosis: forward to surgeon
--- NOTE | 2021-10-30 10:16 | P.CDIR_ITS ---
Documented by User: Yodit White RN 10/30/21 10:18 Retrospective Query PHYSICIAN'S DOCUMENTATION REQUEST Date of Query: 10/30/21 1016 Patient Name: Naima Greene Admit Date: 10/26/21 Dear Doctor, A review of the medical record indicates additional documentation may be needed. Please review below and update the documentation accordingly. Risk Factors/Clinical Indicators/Treatments per surgical note:Patient underwent a laparoscopic lysis of adhesions where an adhesive band from the patient's omentum and liver resection caused an obstruction of her small bowel Based on the above, could you clarify in the Progress Notes the appropriate diagnosis, if significant, that supports the above abnormalities and additional evaluation, monitoring, and/or treatment rendered: * SBO with partial obstruction * SBO with complete obstruction * Other (please specify) * Unable to determine Use of terms such as suspected, likely, concern for, or probable (associated with a specific diagnosis that is being evaluated, monitored, or treated as if it exists) are acceptable and can be coded in the inpatient setting, when documented at the time of discharge. Thank you, Yodit White RN Extension: [phone] Please use your independent medical judgment in providing your response. THIS QUERY IS PART OF THE PERMANENT MEDICAL RECORD Documented by User: Josué Banegas MD 10/31/21 08:42 Retrospective Query PHYSICIAN'S DOCUMENTATION REQUEST Date of Query: 10/30/21 1016 Patient Name: Naima Greene Admit Date: 10/26/21 Dear Doctor, A review of the medical record indicates additional documentation may be needed. Please review below and update the documentation accordingly. Risk Factors/Clinical Indicators/Treatments per surgical note:Patient underwent a laparoscopic lysis of adhesions where an adhesive band from the patient's omentum and liver resection caused an obstruction of her small bowel The SBO obstruction vs partial isn't as important as the fact the intestine was ecchymotic in early ischemia as documented in the op note. This was impending ischemia. Based on the above, could you clarify in the Progress Notes the appropriate diagnosis, if significant, that supports the above abnormalities and additional evaluation, monitoring, and/or treatment rendered: * SBO with partial obstruction * SBO with complete obstruction * Other (please specify) * Unable to determine Use of terms such as suspected, likely, concern for, or probable (associated with a specific diagnosis that is being evaluated, monitored, or treated as if it exists) are acceptable and can be coded in the inpatient setting, when documented at the time of discharge. Thank you, Yodit White RN Extension: [phone] Please use your independent medical judgment in providing your response. THIS QUERY IS PART OF THE PERMANENT MEDICAL RECORD Provider Response: Other
== END 2021-10-29 14:14 | disposition home or self-care (01) | DRG 224 ==
LOC: HO.ED 22:47 → HO.EDOVER 23:37 → HO.S3 10-27 00:41
PROVIDERS: Hospitalist; Internal Medicine; Admitting Provider Surgery; Emergency Provider Emergency Medicine; PCP Internal Medicine; Visit Provider Family Medicine
PROC: (CPT 49320; principal; 2021-10-27 16:30)
DX: K56.50 Intestinal adhesions [bands], unspecified as to partial versus complete obstruction (principal); D72.829 Elevated white blood cell count, unspecified; J45.30 Mild persistent asthma, uncomplicated; E03.9 Hypothyroidism, unspecified; F41.9 Anxiety disorder, unspecified; E28.2 Polycystic ovarian syndrome; Z79.84 Long term (current) use of oral hypoglycemic drugs; Z88.0 Allergy status to penicillin; Z79.890 Hormone replacement therapy; Z79.899 Other long term (current) drug therapy
CPT/HCPCS: 36415; 71045; 74177; 80048; 80053; 81001; 83605; 83690; 84443; 84702; 85025; 85027; 87635; 96361; 96374; 96375; 99285; J1100; J1170; J1650; J2060; J2250; J2405; J3010; Q9967

== ENCOUNTER 2023-08-07 13:41 | Emergency (ER) | payer OTHER, SELFPAY ==
--- NOTE | 2023-08-07 | ECG_ITS ---
Test Reason : CP Blood Pressure : / mmHG Vent. Rate : 062 BPM Atrial Rate : 062 BPM P-R Int : 138 ms QRS Dur : 074 ms QT Int : 412 ms P-R-T Axes : 071 054 064 degrees QTc Int : 418 ms Normal sinus rhythm Possible Left atrial enlargement Borderline ECG No previous ECGs available Referred By: Generic ED Physician Electronically Signed By:Saurabh Edwards
--- NOTE | ~2023-08-07 | XR_ITS ---
EXAMINATION: XR CHEST CLINICAL INFORMATION: Chest pain. COMPARISON: Chest radiograph 10/27/2021. TECHNIQUE: 2 views of the chest were obtained. FINDINGS: Normal appearance of the cardiomediastinal silhouette. No focal airspace opacities, pleural effusion or pneumothorax. No evidence of pulmonary edema. No acute osseous findings. Visualized upper abdomen is within normal limits. XR/XR chest 2V IMPRESSION: No acute cardiopulmonary findings.
[2023-08-07 13:52] VITALS: BP 140/74; PULSE 68; RESP 16; TEMP 36.8; O2SAT 100; BMI 25.2
--- NOTE | 2023-08-07 13:52 | ED_ITS ---
HPI - Chest Pain General Chief Complaint: Chest Pain Stated Complaint: Chest pain Time Seen by Provider: 08/07/23 19:01 Source: patient Mode of arrival: ambulatory Limitations: no limitations History of Present Illness HPI narrative: 39-year-old female with pmhx significant for fibromyalgia, asthma, PCOS presents to the ED today for evaluation of left-sided chest pain that began at 5:00 a.m. this morning after waking up. Admits pain is dull and is exacerbated with deep breathing. No radiation of pain. Endorses associated nausea and SOB. 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 Denies injury/trauma to the chest. Denies recent travel or long car rides. Denies fever, chills, sore throat, cough, hemoptysis, nausea vomiting, lower extremity pain/swelling. Denies history of VTE. Denies cardiac history. Related Data Home Medications Medication Instructions Recorded Confirmed albuterol sulfate 90 mcg/actuation 2 puff inhalation TID PRN 10/27/21 11/05/21 aerosol inhaler Shortness Of Breath budesonide 180 mcg/actuation 2 puff inhalation BID 10/27/21 11/05/21 breath activated powder inhaler (Pulmicort Flexhaler) fluoxetine 20 mg capsule 2 cap PO QAM 10/27/21 11/05/21 levothyroxine 50 mcg tablet 1 tab PO DAILY 10/27/21 11/05/21 lorazepam 0.5 mg tablet 1 tab PO DAILY PRN Anxiety 10/27/21 11/05/21 metformin 500 mg tablet 1 tab PO DAILY 10/27/21 11/05/21 trazodone 50 mg tablet 1 - 3 tab PO BEDTIME PRN Insomnia 10/27/21 11/05/21 Previous Rx's Medication Instructions Recorded naproxen 500 mg tablet 500 mg PO Q8-12H PRN pain (scale 08/07/23 score 4-6) #14 tabs Allergies Allergy/AdvReac Type Severity Reaction Status Date / Time amoxicillin [AMOXICILLIN] Allergy Intermediate INVOLUNTARY Verified 08/07/23 13:52 SPASMS ciprofloxacin [CIPROFLOXACIN] Allergy Intermediate EDEMA Verified 08/07/23 13:52 Penicillins [PENICILLINS] Allergy Unknown UNKNOWN Verified 08/07/23 13:52 gluten AdvReac Gastrointestinal Verified 08/07/23 13:52 Upset Review of Systems 2 Review of Systems: Constitutional: No fever, chills, fatigue, night sweats, weight changes ENT/Mouth: No ear pain, hearing loss, nasal congestion, sinus pain, rhinorrhea, sore throat Eyes: No eye pain, swelling, redness, vision changes, discharge Cardio: No palpitations, ELIZABETH, orthopnea, peripheral edema, +chest pain Pulm: No SOB, cough, sputum, wheezing, dyspnea, hemoptysis GI: No nausea, vomiting, hematemesis, abdominal pain, diarrhea, constipation, hematochezia, melena : No irregular bleeding, dysuria, frequency, urgency, hesitancy, hematuria, flank pain, urinary flow changes, urinary incontinence or retention MSK: No back pain, neck pain, joint pain, myalgias Skin: No lesions, rashes Neuro: No weakness, numbness, paresthesias, LOC, dizziness, headache Psych: No anxiety/panic, depression, SI/HI, AH/VH All other systems reviewed and are negative. [facility] Past Medical History Attestation statement: The following information was validated with the patient. Source: old records reviewed and nursing notes reviewed Surgical History No pertinent past surgical history Family History Family History Other No family history of coronary artery disease Social History Social History Household Members: Spouse and Children Housing: House Do you presently have visiting nurse or other home services: No Patient Tobacco Use Status: Never used Tobacco e-Cigarette/Vaping Use: Never Used Second Hand Smoke Exposure: No Advance Directives: No Advance Directives Information Provided: No service: No Current occupational status: employed Physical Exam 2 Vital Signs: Vital Signs: Last Vital Signs Temp 98.4 F 08/07/23 18:08 Pulse 65 08/07/23 18:08 Resp 16 08/07/23 18:08 BP 133/76 08/07/23 18:08 Pulse Ox 100 08/07/23 18:08 O2 Del Method Room Air 08/07/23 18:08 BMI result Body Mass Index 25.2 Vital signs stable Const: General: cooperative, healthy appearing, comfortable and no acute distress Orientation/consciousness: patient oriented x3 Limitations: no limitations HEENT: Head: Yes normal to inspection, Yes No palpable skull fracture present, Yes normocephalic and Yes atraumatic Eyes: General: appearance normal, both eyes and all related structures C onjunctivae: conjunctivae normal Sclerae: sclerae normal Pupils: Equal, round and reactive pupils present Neck: Neck: Yes normal visual inspection, Yes full ROM, Yes no lymphadenopathy and Yes no JVD Chest: Chest palpation & inspection: normal inspection of the chest and normal palpation of entire chest wall Resp: Effort & Inspection: normal respiratory effort and able to speak in complete sentences Auscultation: clear to auscultation bilaterally, no crackles and no wheezes Cardio: Other: 2+ radial pulses Jugular venous distension: no JVD Rate: regular rate Rhythm: regular rhythm Skin: General skin exam: no rashes or lesions noted Neuro: General: patient oriented x3 and gait normal Cranial nerves: Yes Equal, round and reactive pupils present Gait exam (Neuro): Normal gait present Coordination: [id number] test normal, [id number] test normal and Normal rapid alternating movements of the distal upper extremity present (Neuro) Extrem: General: Yes normal to inspection, Yes capillary refill normal and Yes no calf tenderness Course Course Course Narrative: RME:?47 yo female hx of fibromyalgia, asthma, PCOS, here w/ left sided dull chest pain that began at 0500 this morning. this did not wake her from sleep. Reports dull pain becomes intermittently sharp at random times. associated nausea and SOB. denies known sick contacts. no recent travel or long car rides. lungs cta b/l. RRR. EKG, labs, chest x-ray, serology ordered Full HPI, ROS and PE to be performed by the primary ED provider. Reevaluation(s) Reevaluation #1: 1907-- CBC without leukocytosis or left shift. No anemia. Chemistry without acute electrolyte abnormality requiring intervention. Normal renal and liver function. Troponin undetectable x2. Negative for COVID, flu, RSV. Chest x-ray does not demonstrate pneumonia or abrasion. EKG showing normal sinus rhythm at a rate of 62 beats per minute, QT 412, QTC 418, no acute ischemic changes or ST elevations. > no explanation for patient's chest pain. Informed of all workup results. Advised to take anti-inflammatories at home for pain/discomfort. Patient has remained stable throughout ED visit today. Discussed worrisome signs and symptoms and when to return to the ED. All questions answered at this time. Patient is agreeable with disposition and stable for discharge. Medical Decision Making Medical Decision Making [facility] Narrative: 39-year-old female with pmhx significant for fibromyalgia, asthma, PCOS presents to the ED today for evaluation of left-sided chest pain that began at 5:00 a.m. this morning after waking up. Patient initially hypertensive, now normotensive. Vitals otherwise WNL. She is nontoxic-appearing and in no acute distress. Differential diagnosis includes asthma, ACS, arrhythmia, costochondritis, pleuritis, pneumonia, viral syndrome. Low suspicion for pleural effusion, pericarditis, cardiac tamponade, PE. Plan for labs, EKG, chest x-ray, re-evaluation. Differential Diagnosis Differential Diagnoses: The differential diagnosis associated with the presentation includes as above. Admission/Observation not indicated. Lab Data [facility] Lab Attestation statement: I reviewed the patient's lab results. as above. 08/07/23 15:00 08/07/23 15:00 Labs: Lab Results 08/07/23 08/07/23 Range/Units 15:00 18:30 WBC 8.3 (4.8-10.8) X10*3/uL RBC 4.08 L D (4.20-5.50) X10*6/uL Hgb 12.7 D (12.0-16.0) g/dl Hct 38.0 D (37.0-47.0) % MCV 93.1 (80.0-98.0) fL MCH 31.1 (27.0-33.0) pg MCHC 33.4 (31.0-35.0) g/dl RDW 12.3 (11.0-16.0) % Plt Count 261 (160-400) X10*3/uL MPV 11.4 (9.4-12.3) fL Immature Gran % (Auto) 0.2 (0.0-0.4) % Neut % (Auto) 64.8 (45-73) % Lymph % (Auto) 28.3 (20-40) % [place] % (Auto) 5.0 (2-11) % Eos % (Auto) 1.1 (0-4) % Baso % (Auto) 0.6 (0-2) % Lymph # (Auto) 2.4 (1.2-4.9) X10*3/uL [place] # (Auto) 0.4 (0.1-1.2) X10*3/uL Eos # (Auto) 0.1 (0.0-0.4) X10*3/uL Baso # (Auto) 0.1 (0.0-0.2) X10*3/uL Abs Immat Gran (auto) 0.02 (0.00-0.03) X10*3/uL Absolute Neuts (auto) 5.4 (2.0-8.3) x10*3/uL Absolute Nucleated RBC 0.000 (0.0-0.012) X10*3/uL Nucleated RBC % (auto) 0.0 (0.0-0.2) /100WBC Sodium 139 (135-145) mmol/L Potassium 3.6 (3.3-5.1) mmol/L Chloride 105 (96-108) mmol/L Carbon Dioxide 27 (22-29) mmol/L Anion Gap 11 L (12-20) BUN 15 (9-16) mg/dL Creatinine 0.81 (0.5-1.4) mg/dL Estim Creat Clear Calc 85.7 Estimated GFR > 60 Random Glucose 88 (60-115) mg/dL Calcium 9.4 D (8.4-10.2) mg/dL Magnesium 1.9 (1.6-2.6) mg/dL Total Bilirubin 0.4 (0.0-1.0) mg/dL AST 15 (5-31) U/L ALT 14 (0-31) U/L Alkaline Phosphatase 51 (39-117) U/L Troponin I High Sens < 2.7 < 2.7 (<3.5-17.0) ng/L Total Protein 6.9 (6.5-8.0) g/dL Albumin 4.4 (3.5-5.0) g/dL Influenza Type A (PCR) NEGATIVE (Negative) Influenza Type B (PCR) NEGATIVE (Negative) RSV RNA Qual (PCR) NEGATIVE (Negative) SARS-CoV-2 RNA (RT-PCR) NEGATIVE (Negative) Independent Interpretation I performed an independent interpretation of an: EKG and Plain X-Ray Interpretation: EKG showing normal sinus rhythm at a rate of 62 beats per minute, QT 412, QTC 418, no acute ischemic changes or ST elevations. I have personally reviewed chest x-ray and agree with radiologist's interpretation. Radiology Impression Discussion of test interpretation with radiology: I have reviewed the radiologist's reading. Radiologist Impression: EXAMINATION: XR CHEST CLINICAL INFORMATION: Chest pain. COMPARISON: Chest radiograph 10/27/2021. TECHNIQUE: 2 views of the chest were obtained. FINDINGS: Normal appearance of the cardiomediastinal silhouette. No focal airspace opacities, pleural effusion or pneumothorax. No evidence of pulmonary edema. No acute osseous findings. Visualized upper abdomen is within normal limits. XR/XR chest 2V IMPRESSION: No acute cardiopulmonary findings. External Record Review External record reviewed: Inpatient record, Office record, Outpatient record, Prior outpatient labs, Prior outpatient radiology, Primary care record and Outside ED record Prescription Management I considered prescription management with: Pain Medication Chronic Conditions Patient?s care impacted by: Other (Fibromyalgia) Social Determinants Patient?s care significantly limited by Social Determinants of Health including: Other Social Determinant of Health Discharge Plan Discharge Clinical Impression: Chest pain Patient Disposition: Home, Self-Care Instructions: Chest Pain (ED), Noncardiac Chest Pain (ED), Chest Wall Pain (ED) Additional Instructions: Your lab work today is reassuring. Your cardiac enzyme is normal x2. Your EKG is normal. Your chest x-ray is normal. You tested negative for COVID, flu, RSV. There is no clear etiology for your chest pain however it may be due to inflammation. Naproxen is an anti-inflammatory that has been sent to your pharmacy that you can take for pain/discomfort. Do not take this with other NSAIDs such as ibuprofen as this may cause increased risk of GI bleeding. If symptoms persist, please follow-up with your PCP. Please return with new or worsening symptoms. In the case of an emergency call 911. Prescriptions: New naproxen 500 mg tablet 500 mg PO Q8-12H PRN (Reason: pain (scale score 4-6)) Qty: 14 0RF No Action metformin 500 mg tablet 1 tab PO DAILY trazodone 50 mg tablet 1 - 3 tab PO BEDTIME PRN (Reason: Insomnia) lorazepam 0.5 mg tablet 1 tab PO DAILY PRN (Reason: Anxiety) levothyroxine 50 mcg tablet 1 tab PO DAILY albuterol sulfate 90 mcg/actuation HFA aerosol inhaler 2 puff inhalation TID PRN (Reason: Shortness Of Breath) fluoxetine 20 mg capsule 2 cap PO QAM Pulmicort Flexhaler 180 mcg/actuation aerosol powdr breath activated 2 puff inhalation BID Referrals: Baron Sepulveda MD [Primary Care Provider] - Stand Alone Forms: Work/School Release Discharge Date/Time: 08/07/23 19:30
[2023-08-07 15:05] LABS: MANUAL DIFF FLAG NO
[2023-08-07 15:28] LABS: Alanine Aminotransferase 14 U/L (0-31); Albumin Level 4.4 g/dL (3.5-5.0); Alkaline Phosphatase 51 U/L (39-117); Anion Gap 11 (12-20); Aspartate Amino Transferase 15 U/L (5-31); Basophils Absolute Auto 0.1 X10*3/uL (0.0-0.2); Basophils Percent Auto 0.6 % (0-2); Bilirubin Total 0.4 mg/dL (0.0-1.0); Blood Urea Nitrogen 15 mg/dL (9-16); Calcium 9.4 mg/dL (8.4-10.2); Carbon Dioxide 27 mmol/L (22-29); Chloride 105 mmol/L (96-108); Creatinine Clr Calc Pharmacy 85.7; Eosinophils Absolute Auto 0.1 X10*3/uL (0.0-0.4); Eosinophils Percent Auto 1.1 % (0-4); Estimated Glomerular Filt Rate > 60; Glucose Random 88 mg/dL (60-115); Hemoglobin 12.7 g/dl (12.0-16.0); Imm Gran Abs Auto 0.02 X10*3/uL (0.00-0.03); Imm Gran Pct Auto 0.2 % (0.0-0.4); Lymphocytes Absolute Auto 2.4 X10*3/uL (1.2-4.9); Lymphocytes Percent Auto 28.3 % (20-40); Magnesium 1.9 mg/dL (1.6-2.6); Mean Corpuscular HGB Conc 33.4 g/dl (31.0-35.0); Mean Corpuscular Hemoglobin 31.1 pg (27.0-33.0); Mean Corpuscular Volume 93.1 fL (80.0-98.0); Mean Platelet Volume 11.4 fL (9.4-12.3); Monocytes Absolute Auto 0.4 X10*3/uL (0.1-1.2); Neutrophils Absolute Auto 5.4 x10*3/uL (2.0-8.3); Neutrophils Percent Auto 64.8 % (45-73); Platelet Count 261 X10*3/uL (160-400); Potassium 3.6 mmol/L (3.3-5.1); Red Blood Count 4.08 X10*6/uL (4.20-5.50); Red Cell Distribution Width 12.3 % (11.0-16.0); Sodium 139 mmol/L (135-145); Total Protein 6.9 g/dL (6.5-8.0); White Blood Count 8.3 X10*3/uL (4.8-10.8)
[2023-08-07 15:40] LABS: Troponin-I High Sensitivity < 2.7 ng/L (<3.5-17.0)
[2023-08-07 15:54] LABS: Influenza A PCR NEGATIVE (Negative); Influenza B PCR NEGATIVE (Negative); Resp Syncy Virus RNA Qual PCR NEGATIVE (Negative); SARS COV2 PCR INHOUSE NEGATIVE (Negative)
[2023-08-07 18:08] VITALS: BP 133/76; PULSE 65; RESP 16; TEMP 36.9; O2SAT 100
[2023-08-07 18:57] LABS: Troponin-I High Sensitivity < 2.7 ng/L (<3.5-17.0)
== END 2023-08-07 19:30 | disposition home or self-care (01) ==
PROVIDERS: Physician Assistant Medical; Emergency Provider Student in an Organized Health Care Education/Training Program; PCP Internal Medicine
DX: R07.9 Chest pain, unspecified (principal); J45.909 Unspecified asthma, uncomplicated; Z11.52 Encounter for screening for COVID-19; Z20.828 Contact with and (suspected) exposure to other viral communicable diseases
CPT/HCPCS: 0241U; 36415; 71046; 80053; 83735; 84484; 85025; 93005; 99283

== ENCOUNTER → 2023-08-07 13:48 | Outpatient (BNV) | payer OTHER, SELFPAY | PROVIDERS: PCP Internal Medicine; Visit Provider Internal Medicine Cardiovascular Disease | DX: R07.9 Chest pain, unspecified (principal) | CPT/HCPCS: 93010 ==

== ENCOUNTER 2024-10-28 10:15 | Outpatient (REF) | payer OTHER, SELFPAY ==
--- NOTE | 2024-10-28 10:19 | EEG_ITS ---
This is a 16 channel EEG with an EKG lead. The patient is reported awake during the tracing. Background EEG rhythm is 10 or faster, 5 to 20 microvolt posteriorly lower amplitude fast anteriorly. Photic stimulation does not produce any significant driving. Hyperventilation is not performed. Cardiac lead does not reveal any significant abnormality. No definite sharp wave spikes or paroxysmal tendency noted. IMPRESSION: No significant abnormality noted on this EEG. MD RIMA Monge/LINSEY / [id number]
--- OUTSIDE RECORDS SUMMARY | 2024-10-28 11:37 | XMS_ITS | Patient Health Record ---
Author Organization [facility] Address [address] [place] [address] Care Team Providers Care Associate Business Analyst Name Role Phone Baron Sepulveda MD Primary Care Provider UnavailKylie Ray Unavailable [phone] Allergies Allergen (clinical drug ingredient) Drug/Non Drug Allergy documented on EMR Reaction Allergy Type Onset Date Status clarithromycin clarithromycin (uncoded) vaginitis Allergy Active Latex latex (uncoded) itching Allergy Acti ve amoxicillin Amoxicillin swelling Drug Allergy Act ashu Reason For Referral No Information Medications Medication SIG (Take, Route, Frequency, Duration) Notes Start Date End Date Status traZODone HCl 50 MG 1 tablet at bedtime as needed Orally Once a day for 30 day(s) Active Levothyroxine Sodium 50 MCG 1 tablet on an empty stomach in the morning Orally Once a day for 30 day(s) Active Pulmicort Flexhaler 180 MCG/ACT 1 puff Inhalation Twice a day Active Albuterol Active metFORMIN HCl 500 MG 1 tablet with a dee dee l Orally Once a day for 30 day(s) Active FLUoxetine HCl 40 MG 1 capsule Orally On ce a day for 30 day(s) Active Social History Tobacco Use: Social History Observation Description Date Details (start date - stop date) Never Smoker NA - NA Tobacco Use/Smoking Question Answer Notes Are you a: nonsmoker Additional Findings: Tobacco Non-User Aggressive non-smoker Alcohol Screen Question Answer Notes Did you have a drink containing alcohol in the p ast year? Yes Points 0 Interpretation Negative Plan Of Treatment No Information Insurance Providers Payer Name Payer Address Payer Phone Subscriber Number Group Number Insured Name Patient Relationship to Insured Coverage Start Date Coverage End Date [facility] [address] [place] [address] [phone] [id number] Naima Greene Self - patient is the insured Medical (General) History Medical History History ICD Code Anemia Anxiety asthma Depression thyroid Warts Chicken pox Surgical History Surgery Date(Month/Year) Liver lesion- infection 03/2006
== END 2024-10-28 10:16 | disposition home or self-care (01) ==
LOC: HO.NEURO 10:15
PROVIDERS: PCP Internal Medicine; Visit Provider Internal Medicine
DX: G43.109 Migraine with aura, not intractable, without status migrainosus (principal)
CPT/HCPCS: 95816